=== PATIENT | male | born 1965 | race Caucasian/White ===

== ENCOUNTER 2017-03-29 09:07 | Day surgery (SDC) | payer OTHER ==
[~2017-03-29] VITALS: Ht 180.3 cm; Wt 110.0 kg
[2017-03-29] MEDS ORDERED: NS 1,000 ML IV ONE ×2 (09:30→11:30)
[2017-03-29 09:42] LABS: BASO % 0.2 % (0.0-1.0); EOS # 0.1 K/mm3 (0.0-0.50); EOS % 0.6 % (0.0-3.0); LARGE UNSTAINED CELL # 0.1 K/mm3 (0.0-0.4); LARGE UNSTAINED CELL % 0.7 % (0.0-4.0); LYMPH % 5.6 % (24.0-44.0); MEAN CORPUSCULAR HEMOGLOBIN 29.4 pg (27.0-33.0); MEAN CORPUSCULAR HGB CONC 33.2 g/dl (32.0-36.5); MEAN CORPUSCULAR VOLUME 88.7 fl (80.0-96.0); MONO # 0.8 K/mm3 (0.0-0.8); MONO % 5.1 % (0.0-5.0); NEUTROPHILS # 14.7 K/mm3 (1.8-7.7); NEUTROPHILS % 87.9 % (36.0-66.0); PLATELET COUNT, AUTOMATED 176 k/mm3 (150-450); RED CELL DISTRIBUTION WIDTH 12.6 % (11.5-14.5); WHITE BLOOD COUNT 16.7 K/mm3 (4.0-10.0)
[2017-03-29 09:45] LABS: INR 1.05
[2017-03-29 09:56] LABS: ALBUMIN 3.4 GM/DL (3.2-5.2); ALKALINE PHOSPHATASE 58 U/L (45-117); ALT/SGPT 20 U/L (12-78); AMYLASE 25 U/L (25-115); ANION GAP 6 MEQ/L (8-16); AST/SGOT 7 U/L (15-37); BILIRUBIN,DIRECT 0.1 MG/DL (0.0-0.2); BILIRUBIN,TOTAL 1.2 MG/DL (0.2-1.0); BLOOD UREA NITROGEN 12 MG/DL (7-18); CALCIUM LEVEL 8.4 MG/DL (8.5-10.1); CARBON DIOXIDE LEVEL 28 MEQ/L (21-32); CHLORIDE LEVEL 102 MEQ/L (98-107); CREATININE FOR GFR 1.01 MG/DL (0.70-1.30); GLOMERULAR FILTRATION RATE > 60.0 (>60); GLUCOSE, FASTING 113 MG/DL (70-105); POTASSIUM SERUM 3.9 MEQ/L (3.5-5.1); SODIUM LEVEL 136 MEQ/L (136-145); TOTAL PROTEIN 6.8 GM/DL (6.4-8.2)
[2017-03-29] MEDS ORDERED: ISOVUE-370 76% 100ML VIAL (Q9967) As Ordered ONE (10:30)
--- NOTE | 2017-03-29 10:34 | REP ---
Chest one-view HISTORY: Chest pain Comparison: 08/24/2005 The lungs are clear. The heart is normal in size. The pulmonary vasculature is normal in appearance. Impression: No acute disease. Signed by Thomas Marie MD 03/29/2017 10:26 A
[2017-03-29] MEDS ORDERED: PIPERACILLIN/TAZOBACTAM SOD 3.375 GM in D5W MINI-BAG PLUS 50 ML IV ONE (11:30)
--- NOTE | 2017-03-29 11:30 | REP ---
CT PULMONARY ANGIOGRAM: With IV contrast. HISTORY: Severe back abdominal and chest pain. COMPARISON STUDIES: Today's chest x-ray. Contrast dose: 100 mL of Isovue [address] TECHNIQUE: Helical scanning is acquired and overlapping 1.5 mm and contiguous 3 mm axial images are reformatted. In addition, a 3D work station is deployed to generate thick slab maximum intensity projection images in sagittal and coronal imaging projections. CT PULMONARY ANGIOGRAPHIC FINDINGS: There is good opacification of the pulmonary arterial tree. There is no CT evidence of pulmonary embolism. Maximal intensity projection images show no vessel cutoff or filling defect in the pulmonary arterial tree to suggest a thrombus. The thoracic aorta enhances homogeneously and is normal in caliber and contour. There is no evidence of aneurysm or dissection. No pleural or pericardial effusion is seen. No adrenal lesion is observed. The visualized upper abdominal structures are unremarkable. Lung window settings demonstrate a noncalcified pulmonary nodule in the left lower lobe measuring 3 mm in diameter on image number 59 of 107, series 402 of today's study. There is a second similar 3 mm nodule in the left lower lobe on image number 50 of 107 in this same series. There is yet another 3 mm nodule in the left lung apex on image number 10 of 107. The lung gaona are otherwise clear. IMPRESSION: 1. No CT evidence of pulmonary embolism. 2. There are three noncalcified pulmonary nodules which each measure 3 mm in greatest diameter in the left lung. By Fleischner criteria, if the patient is considered at low risk for pulmonary malignancy, no follow-up is necessary. If considered at high risk, a follow-up chest CT study in 1 year would be indicated. Signed by Niels Spence MD 03/29/2017 01:38 P
--- NOTE | 2017-03-29 11:31 | REP ---
CT study of the abdomen and pelvis with IV but without oral contrast: History: Severe back, abdominal, and chest pain. Comparison abdominal CT study August 04, 2010. CT contrast dose: 100 ml of Isovue [address] findings: Digital commercial ocean clammer radiograph is unremarkable. There is no evidence of ascites. The liver and the spleen are normal in size, homogeneous in texture. There are two tiny accessory splenules again noted. No adrenal lesion is seen. Pancreas and gallbladder are unremarkable. The kidneys enhance symmetrically and are morphologically intact. There is a cyst in the lower pole of the right kidney on today's CT study. This measures 2.2 cm in greatest diameter. It has increased in size from the prior exam in 2009. No hydronephrosis is seen. Normal caliber aorta is noted. Urinary bladder, prostate, and seminal vesicles are unremarkable. No abdominal wall defect is seen. The appendix is abnormal today being diffusely thickened. The periappendiceal fat is inflamed and edematous. There is a small quantity of pericolic gutter fluid but no abscess is seen. The findings are compatible with acute appendicitis. There is no evidence of free air. Impression: CT findings consistent with acute appendicitis with pericolonic inflammation, mural thickening, and some pericolic fluid. No abscess or free air seen. A small cyst is noted in the right kidney. No other significant finding. Signed by Niels Spence MD 03/29/2017 01:38 P
[2017-03-29 15:00] VITALS: BP 130/61
[2017-03-29] MEDS: LR 1,000 ML IV SCH ×2 (15:35→21:55)
--- NOTE | 2017-03-29 16:25 | ED PDOC ---
Post-Departure Follow-Up certified letter sent to pt re formal report of cta. Alverto Ruiz MD Mar 29, 2017 16:24
[2017-03-29] MEDS ORDERED: ONDANSETRON 4MG/2ML VIAL (J2405) IV PRN ×2 (17:30→20:45)
[2017-03-29] MEDS ORDERED: ACETAMINOPHEN TAB 650MG DOSE (2X325MG) PO PRN (17:30)
[2017-03-29] MEDS ORDERED: MORPHINE 2 MG/ML 1ML SYRINGE IV PRN (17:30)
[2017-03-29] MEDS ORDERED: NORCO, ANEXSIA 5/325MG TABLET (HYDROcodone/ACETAMINOPHEN) PO PRN (17:30)
[2017-03-29] MEDS ORDERED: KETOROLAC 30 MG/ML VIAL (J1885) IV PRN ×2 (17:30→20:45)
--- NOTE | 2017-03-29 18:26 | CR ---
DATE OF ADMISSION: 03/29/2017 REASON FOR CONSULTATION: Right quadrant abdominal pain. HISTORY OF PRESENT ILLNESS: The patient is a 51-year-old male who presents with lower back pain that gradually radiated around to his abdomen, up into his epigastric area. This has all gone over the last two days. Early this morning, he went in to Urgent Care because the pain was so severe, he was in tears on his way to Urgent Care. They did a quick cardiac workup, including an EKG, which apparently was abnormal, so they sent him over to emergency room for evaluation. In the emergency room (ER), he had blood work done, as well as a CT scan. There was concern for possible pulmonary embolism (PE), so he had a computed tomography angiography (CTA) completed at first, which was negative for PE, that was then followed up with a CT abdomen and pelvis, which showed findings consistent with acute appendicitis with pericolonic inflammation, mural thickening and some pericolic fluid. No abscess or free air was seen. There is also a small cyst on the right kidney. Therefore, I was called to evaluate. Patient denies any nausea or vomiting. He actually is hungry. No fever sweats or chills. No recent illnesses. No recent trauma to the area. PAST MEDICAL HISTORY: Negative. ALLERGIES: None. HOME MEDICATIONS: None, other than occasional aspirin. SOCIAL HISTORY: Denies drugs, alcohol, or tobacco abuse. PAST HISTORY: Noncontributory. PAST SURGERIES: He has had bilateral knee surgeries. No abdominal surgeries. PHYSICAL EXAMINATION: GENERAL: Alert and oriented (A and O) times three. VITAL SIGNS: Temperature 99, pulse 76, respirations 18, blood pressure 130/61, pulse oximetry 95% room air. HEENT: Pupils equal, round, react to light and accommodation. HEART: S1, S2. Regular rate and rhythm. LUNGS: Clear to auscultation bilaterally. ABDOMEN: Soft. Tender to palpation right lower quadrant. No rebound, guarding or rigidity. EXTREMITIES: No clubbing, cyanosis or edema. LABORATORIES: White count 16.7, hemoglobin 14.8, platelets 176. Potassium 3.9, creatinine 1.01. Troponin 0.02. CK-MB 1. IMAGING STUDIES: As stated already, consistent with acute appendicitis. ASSESSMENT/PLAN: The patient 51-year-old male with signs and symptoms consistent with acute appendicitis. RECOMMENDATIONS: Proceed with laparoscopic, possible open, appendectomy. Risks, benefits and procedure were discussed in detail with the patient. Risks include, but are not limited to, bleeding, infection, hernia formation, damage to surrounding structures, need for further surgery. He understood and signed consent. Postoperatively, due to elevated white count of 16.7, he will be admitted to the hospital and kept overnight for observation, with likely plan of discharge home in the morning.
[2017-03-29] MEDS ORDERED: BUPIVACAINE/EPIN 0.25% 30 ML VIAL As Ordered ONE (18:33)
[2017-03-29] MEDS ORDERED: PROPOFOL 200 MG/20 ML VIAL As Ordered ONE (18:36)
[2017-03-29] MEDS ORDERED: KETOROLAC 60 MG/2 ML VIAL (J1885) As Ordered ONE (18:36)
[2017-03-29] MEDS ORDERED: ONDANSETRON 4MG/2ML VIAL (J2405) As Ordered ONE (18:36)
[2017-03-29] MEDS ORDERED: SUCCINYLCHOLINE 100 MG/5 ML SYRINGE (J0330) As Ordered ONE (18:36)
[2017-03-29] MEDS ORDERED: NEOSTIGMINE 1MG/ML 5 ML SYRINGE (J2710) As Ordered ONE (18:36)
[2017-03-29] MEDS ORDERED: GLYCOPYRROLATE INJ 0.2 MG/ML 2 ML VIAL As Ordered ONE (18:36)
[2017-03-29] MEDS ORDERED: ROCURONIUM BROMIDE 50 MG/5 ML VIAL As Ordered ONE (18:36)
[2017-03-29] MEDS ORDERED: fentaNYL 100 MCG/2 ML INJECTION (J3010) As Ordered ONE ×2 (18:37→19:27)
[2017-03-29] MEDS ORDERED: MIDAZOLAM INJ 2 MG/2 ML VIAL (J2250) As Ordered ONE (18:38)
[2017-03-29] MEDS ORDERED: ZOSYN 3.375 GM VIAL (J2543) As Ordered ONE (18:55)
[2017-03-29] MEDS: PIPERACILLIN/TAZOBACTAM SOD 3.375 GM in D5W MINI-BAG PLUS 50 ML IV SCH (19:22)
[2017-03-29] MEDS ORDERED: dexameTHASONE 4 MG/ML 1ML VIAL (J1100) As Ordered ONE (19:29)
[2017-03-29] MEDS ORDERED: MEPERIDINE INJ 25 MG/ML VIAL (J2175) IV PRN (20:45)
[2017-03-29] MEDS ORDERED: fentaNYL 100 MCG/2 ML INJECTION (J3010) IV PRN (20:45)
[2017-03-29] MEDS ORDERED: PERCOCET 5MG/325MG TAB PO PRN (20:45)
[2017-03-29] MEDS ORDERED: LR 1,000 ML IV SCH (20:45)
[2017-03-29] MEDS ORDERED: METOCLOPRAMIDE INJ 10MG/2ML VIAL (J2765) IV PRN (20:45)
[2017-03-29] MEDS: SENOKOT S TAB PO SCH (21:00)
[2017-03-29 21:08] VITALS: BP 115/54
[2017-03-29 21:38] VITALS: BP 138/63
[2017-03-29 22:38] VITALS: BP 117/59
[2017-03-29 23:38] VITALS: BP 118/56
[2017-03-30 00:38] VITALS: BP 134/52
[2017-03-30] MEDS: PIPERACILLIN/TAZOBACTAM SOD 3.375 GM in D5W MINI-BAG PLUS 50 ML IV SCH ×2 (00:49→06:46)
[2017-03-30 01:38] VITALS: BP 122/55
[2017-03-30 04:00] VITALS: BP 117/56
[2017-03-30] MEDS: LR 1,000 ML IV SCH (04:35)
--- NOTE | 2017-03-30 06:19 | RO ---
DATE OF PROCEDURE: 03/29/2017 PREOPERATIVE DIAGNOSIS: Acute appendicitis. POSTOPERATIVE DIAGNOSIS: Acute appendicitis. PROCEDURE: Laparoscopic appendectomy. SURGEON: Dr. Varinder Soto. WELT SLASHER: None. ANESTHESIA: General. ESTIMATED BLOOD LOSS: 10. COMPLICATIONS: None. INDICATIONS FOR PROCEDURE: The patient is a 51-year-old male who presents with right lower quadrant abdominal pain and found have acute appendicitis. Recommendation to proceed with laparoscopic possible open appendectomy. Risks and benefits of the procedure not limited to but including bleeding, infection, hernia formation, damage to surrounding structures, need for further surgery discussed in detail with the patient. Informed consent was obtained and procedure was planned. PROCEDURE: The was patient brought back to operating room three. After sufficient sedation, the abdomen was sterilely prepped and draped. Next a time-out was done confirm proper patient and proper procedure. Following that, a stab incision was made in the left lower quadrant at Aguila's point. A Veress needle was inserted and the abdomen was insufflated with 15 mmHg. Next 5 mm OptiView port was used at the umbilicus to gain access to the abdomen. Once the abdomen was entered, Veress needle site was examined. There was no signs of injury. Veress needle was then removed. 3 mm port was then placed there. Another 3 mm port was placed in the right lower quadrant. The cecum was encountered with a very large and inflamed appendix. 3 mm instruments were too small to really grab onto it adequately so I had to convert over to the 5 mm instruments and convert two 3 mm port sites back to 5 mm ports. With the larger camera, I had much better visualization. Much larger instruments were able to grab the appendix easier. I was able to elevate it up, dissect through the mesoappendix using Enseal. Once the base of the appendix was reached, it was ligated twice with PDS Endoloops. During the process, the appendix did break into two separate pieces and the third piece was amputated using Enseal after it was ligated with an Endoloop. Once the three pieces were taken off, they were all placed inside of a 5 mm bag and brought out through the umbilical port site. The right lower quadrant was aspirated without any irrigation. There is no signs of any pus or stool leakage. The abdomen was then desufflated. Skin incisions were closed with #4-0 Vicryl subcuticular sutures. The abdomen was cleaned and dried. Steri-Strips, 4x4 and tape were applied thus ending the procedure.
[2017-03-30] MEDS: SENOKOT S TAB PO SCH (07:57)
[2017-03-30 08:00] VITALS: BP 126/56
--- NOTE | 2017-03-30 08:15 | ECGEPIP ---
Stationary ECG Study [facility] - ED Test Date: 2017-03-29 Pat Name: JOSE GUZMÁN Department: Room: [place] [address] Gender: M Yam Curer: LETI : 1965 Requested By: Alverto Beard Order Number: [id number] Reading MD: Sun Stern Measurements Intervals [place] Rate: 76 P: 1 SD: 152 QRS: 38 QRSD: 117 T: 28 QT: 343 QTc: 388 Interpretive Statements SINUS RHYTHM LOW QRS VOLTAGE IN PRECORDIAL LEADS MODERATE INTRAVENTRICULAR CONDUCTION DELAY NO PRIOR FOR COMPARISON Electronically Signed On 03-30-2017 8:15:02 EDT by Sun Stern
[2017-03-30 08:20] LABS: MEAN CORPUSCULAR HEMOGLOBIN 29.8 pg (27.0-33.0); MEAN CORPUSCULAR HGB CONC 33.2 g/dl (32.0-36.5); MEAN CORPUSCULAR VOLUME 89.7 fl (80.0-96.0); RED CELL DISTRIBUTION WIDTH 12.7 % (11.5-14.5); WHITE BLOOD COUNT 12.7 K/mm3 (4.0-10.0)
[2017-03-30 08:36] LABS: ANION GAP 7 MEQ/L (8-16); BLOOD UREA NITROGEN 16 MG/DL (7-18); CALCIUM LEVEL 8.3 MG/DL (8.5-10.1); CARBON DIOXIDE LEVEL 27 MEQ/L (21-32); CHLORIDE LEVEL 105 MEQ/L (98-107); CREATININE FOR GFR 1.25 MG/DL (0.70-1.30); GLOMERULAR FILTRATION RATE > 60.0 (>60); GLUCOSE, FASTING 144 MG/DL (70-105); POTASSIUM SERUM 4.1 MEQ/L (3.5-5.1); SODIUM LEVEL 139 MEQ/L (136-145)
[2017-03-30] MEDS ORDERED: PANTOPRAZOLE 40MG INJ (PROTONIX) (C9113) IV SCH (09:00)
[2017-03-30] MEDS ORDERED: NORCOTAB PO (09:05)
[2017-03-30] MEDS ORDERED: SENN1TAB2 PO (09:05)
[2017-03-30] MEDS ORDERED: AUGM500T34 PO (09:05)
--- NOTE | 2017-03-30 15:53 | DSES ---
DATE OF ADMISSION: 03/29/2017 DATE OF DISCHARGE: 03/30/2017 ADMISSION DIAGNOSIS: Acute appendicitis. DISCHARGE DIAGNOSIS: Acute appendicitis. HOSPITAL COURSE: Patient is a 51-year-old male who presents with right lower quadrant pain, found to have acute appendicitis on CT scan. Recommendation was to proceed with laparoscopic, possible open, appendectomy. He was taken to the operating room for laparoscopic appendectomy yesterday evening. Intraoperatively his appendix was extremely inflamed. It had broken up into three pieces trying to remove it. There were no signs of any purulent drainage or fecal drainage from the appendix when it perforated; however, due to the severe inflammation I kept him overnight for observation. This morning he has zero pain. His incisions were clean, dry, and intact. Abdomen soft, nontender, nondistended. No fevers. Vital signs are all normal. Tolerating a diet, ambulating without any difficulty, and already passing gas. This morning his white count has dropped down from 16.7 to 12. Therefore, he will be discharged home today. PROCEDURES: Laparoscopic appendectomy on 03/29/2017. PLAN: Discharge home today. Followup me in the office in 2 weeks. No lifting, pushing, pulling more 20 pounds. Leave Steri-Strips in place. Okay to shower when he gets home. No hot tubs, baths, or pools for 5 days. His Bonduel, senna, and Augmentin were sent to his pharmacy.
== END 2017-03-30 10:35 | disposition home or self-care (01) ==
LOC: M ED 09:30 → M SDC 13:03 → M PED 14:45 → M SDC 03-30 10:35
PROVIDERS: ATTEND Surgery
DX: K35.80 Unspecified acute appendicitis (principal); R06.09 Other forms of dyspnea; Z72.0 Tobacco use
CPT/HCPCS: 36415; 44970; 71010; 71275; 74177; 80048; 80076; 81001; 82150; 82550; 82553; 83605; 83690; 85025; 85027; 85610; 85730; 86850; 86900; 86901; 87040; 87086; 88304; 93005; 93041; 96374; 96375; 99285; C9113; J0330; J1100; J1885; J2250; J2405; J2543; J2710; J3010; Q9967

== ENCOUNTER → 2017-05-15 | Outpatient (CLI) | payer OTHER ==
[~2017-05-15] MED LIST: AUGM500T34 PO; NORCOTAB PO; SENN1TAB2 PO
[2017-05-15 10:40] LABS: BASO % 0.3 % (0.0-1.0); EOS # 0.3 K/mm3 (0.0-0.50); EOS % 5.1 % (0.0-3.0); LARGE UNSTAINED CELL # 0.1 K/mm3 (0.0-0.4); LARGE UNSTAINED CELL % 1.9 % (0.0-4.0); LYMPH # 1.4 K/mm3 (1.5-4.5); LYMPH % 20.2 % (24.0-44.0); MEAN CORPUSCULAR HEMOGLOBIN 29.9 pg (27.0-33.0); MEAN CORPUSCULAR HGB CONC 33.3 g/dl (32.0-36.5); MEAN CORPUSCULAR VOLUME 89.7 fl (80.0-96.0); MONO # 0.4 K/mm3 (0.0-0.8); MONO % 5.6 % (0.0-5.0); NEUTROPHILS # 4.2 K/mm3 (1.8-7.7); NEUTROPHILS % 66.9 % (36.0-66.0); PLATELET COUNT, AUTOMATED 174 k/mm3 (150-450); RED CELL DISTRIBUTION WIDTH 12.9 % (11.5-14.5); WHITE BLOOD COUNT 6.3 K/mm3 (4.0-10.0)
[2017-05-15 11:14] LABS: ALBUMIN 3.9 GM/DL (3.2-5.2); ALKALINE PHOSPHATASE 58 U/L (45-117); ALT/SGPT 26 U/L (12-78); ANION GAP 5 MEQ/L (8-16); AST/SGOT 13 U/L (15-37); BILIRUBIN,TOTAL 1.1 MG/DL (0.2-1.0); BLOOD UREA NITROGEN 15 MG/DL (7-18); CALCIUM LEVEL 8.8 MG/DL (8.5-10.1); CARBON DIOXIDE LEVEL 30 MEQ/L (21-32); CHLORIDE LEVEL 101 MEQ/L (98-107); CHOLESTEROL LEVEL 214 MG/DL (<200); CREATININE FOR GFR 1.09 MG/DL (0.70-1.30); GLOMERULAR FILTRATION RATE > 60.0 (>60); GLUCOSE, FASTING 98 MG/DL (70-105); POTASSIUM SERUM 4.3 MEQ/L (3.5-5.1); SODIUM LEVEL 136 MEQ/L (136-145); TOTAL PROTEIN 6.9 GM/DL (6.4-8.2); TRIGLYCERIDES LEVEL 159 MG/DL (<150)
== END ==
LOC: M LAB 10:06
PROVIDERS: ATTEND Family Medicine
DX: Z12.5 Encounter for screening for malignant neoplasm of prostate (principal); Z13.220 Encounter for screening for lipoid disorders; Z13.0 Encounter for screening for diseases of the blood and blood-forming organs and certain disorders involving the immune mechanism; Z13.29 Encounter for screening for other suspected endocrine disorder
CPT/HCPCS: 36415; 80053; 80061; 84443; 85025; G0103

== ENCOUNTER 2018-12-24 17:57 | Emergency (ER) | payer OTHER ==
[~2018-12-24] VITALS: Ht 180.3 cm; Wt 127.8 kg
[2018-12-24 18:36] LABS: BASO % 0.2 % (0.0-1.0); EOS # 0.4 10^3/uL (0.0-0.50); EOS % 4.5 % (0.0-3.0); HEMATOCRIT 45.5 % (42.0-52.0); LYMPH # 1.9 10^3/uL (1.5-4.5); LYMPH % 23.6 % (24.0-44.0); MEAN CORPUSCULAR HEMOGLOBIN 29.5 pg (27.0-33.0); MEAN CORPUSCULAR VOLUME 89.6 fl (80.0-96.0); MONO # 0.5 10^3/uL (0.0-0.8); NEUTROPHILS # 5.2 10^3/uL (1.8-7.7); NEUTROPHILS % 65.3 % (36.0-66.0); PLATELET COUNT, AUTOMATED 191 10^3/uL (150-450); RED BLOOD COUNT 5.08 10^6/uL (4.30-6.10)
--- NOTE | 2018-12-24 18:50 | REP ---
Portable chest x-ray: Single view: History: Chest pain. Comparison study: March 29, 2017. Findings: EKG monitoring electrodes overlie the chest. Lungs are well inflated and clear. Pleural angles are sharp. Heart size is normal. There is an old healed fracture of the left second rib unchanged. Surgical sutures are noted incidentally in the mandibular ramus on the right. Impression: No active cardiopulmonary disease. Electronically Signed by Niels Spence MD 12/24/2018 07:13 P
[2018-12-24 19:28] LABS: ALBUMIN 3.6 GM/DL (3.2-5.2); ALT/SGPT 29 U/L (12-78); BILIRUBIN,DIRECT < 0.1 MG/DL (0.0-0.2); BILIRUBIN,TOTAL 0.3 MG/DL (0.2-1.0); BLOOD UREA NITROGEN 17 MG/DL (7-18); CALCIUM LEVEL 8.1 MG/DL (8.5-10.1); CARBON DIOXIDE LEVEL 30 MEQ/L (21-32); CHLORIDE LEVEL 104 MEQ/L (98-107); CPK CREATINE PHOSPHOKINASE 153 U/L (39-308); CREATININE FOR GFR 1.18 MG/DL (0.70-1.30); GLOMERULAR FILTRATION RATE > 60.0 (>56); GLUCOSE, FASTING 110 MG/DL (70-100); LIPASE 198 U/L (73-393); MB/CK RELATIVE INDEX 0.78 (< OR =4); POTASSIUM SERUM 3.6 MEQ/L (3.5-5.1); SODIUM LEVEL 142 MEQ/L (136-145); TROPONIN I < 0.02 NG/ML (< 0.10)
[2018-12-24 19:45] VITALS: BP 139/63
--- NOTE | 2018-12-24 20:04 | ECGEPIP ---
Stationary ECG Study [facility] - ED Test Date: 2018-12-24 Pat Name: JOSE GUZMÁN Department: Room: - Gender: M Director Of Fundraising: : 1965 Requested By: Alverto Beard Order Number: [id number] Reading MD: Alverto Beard Measurements Intervals [place] Rate: 77 P: 12 AR: 160 QRS: 43 QRSD: 114 T: 40 QT: 347 QTc: 394 Interpretive Statements SINUS RHYTHM INCOMPLETE RIGHT BUNDLE BRANCH BLOCK NONSPECIFIC ST T WAVE CHANGES 03/29/[address] T WAVE CHANGES Electronically Signed On 12-24-2018 20:03:36 EST by Alverto Beard
== END 2018-12-24 20:13 | disposition home or self-care (01) ==
LOC: M ED 17:57
DX: R07.89 Other chest pain (principal); I45.10 Unspecified right bundle-branch block; R06.02 Shortness of breath; Z87.891 Personal history of nicotine dependence; Z82.49 Family history of ischemic heart disease and other diseases of the circulatory system; Z86.79 Personal history of other diseases of the circulatory system

== ENCOUNTER → 2019-03-05 | Outpatient (CLI) | payer OTHER ==
[~2019-03-05] MED LIST changes: +HYDR-3715 PO; -NORCOTAB PO; -SENN1TAB2 PO; +SENN1TAB40 PO
[2019-03-05 12:03] LABS: BASO % 0.5 % (0.0-1.0); EOS # 0.4 10^3/uL (0.0-0.50); EOS % 6.9 % (0.0-3.0); HEMATOCRIT 46.7 % (42.0-52.0); HEMOGLOBIN 15.4 g/dl (13.5-17.5); LYMPH # 1.5 10^3/uL (1.5-4.5); LYMPH % 22.8 % (24.0-44.0); MEAN CORPUSCULAR HEMOGLOBIN 29.4 pg (27.0-33.0); MEAN CORPUSCULAR VOLUME 89.3 fl (80.0-96.0); MONO # 0.5 10^3/uL (0.0-0.8); MONO % 8.2 % (0.0-5.0); NEUTROPHILS # 3.9 10^3/uL (1.8-7.7); NEUTROPHILS % 61.1 % (36.0-66.0); PLATELET COUNT, AUTOMATED 198 10^3/uL (150-450); RED BLOOD COUNT 5.23 10^6/uL (4.30-6.10); WHITE BLOOD COUNT 6.4 10^3/uL (4.0-10.0)
[2019-03-05 13:00] LABS: ALBUMIN 3.8 GM/DL (3.2-5.2); ALT/SGPT 29 U/L (12-78); BILIRUBIN,TOTAL 0.8 MG/DL (0.2-1.0); BLOOD UREA NITROGEN 17 MG/DL (7-18); CALCIUM LEVEL 8.7 MG/DL (8.5-10.1); CARBON DIOXIDE LEVEL 29 MEQ/L (21-32); CHLORIDE LEVEL 106 MEQ/L (98-107); CHOLESTEROL LEVEL 202 MG/DL (<200); CHOLESTEROL RISK RATIO 5.315 (<5); CREATININE FOR GFR 0.99 MG/DL (0.70-1.30); GLOMERULAR FILTRATION RATE > 60.0 (>56); GLUCOSE, FASTING 97 MG/DL (70-100); HDL CHOLESTEROL 38 MG/DL (>40); LDL CHOLESTEROL 140 MG/DL (<100); NON-HDL-C 164 MG/DL; NT-PRO BNP 29 PG/ML (<125); POTASSIUM SERUM 4.7 MEQ/L (3.5-5.1); SODIUM LEVEL 140 MEQ/L (136-145); TOTAL PROTEIN 7.1 GM/DL (6.4-8.2); TRIGLYCERIDES LEVEL 120 MG/DL (<150); TROPONIN I < 0.02 NG/ML (< 0.10)
[2019-03-05 13:42] LABS: HEMOGLOBIN A1c 5.5 %
== END ==
LOC: M LAB 11:08
PROVIDERS: ATTEND Physician Assistant
DX: R07.9 Chest pain, unspecified (principal)

== ENCOUNTER → 2019-04-04 | Outpatient (CLI) | payer OTHER ==
[2019-04-04 13:32] LABS: ALBUMIN 3.7 GM/DL (3.2-5.2); ALT/SGPT 28 U/L (12-78); BLOOD UREA NITROGEN 15 MG/DL (7-18); CALCIUM LEVEL 8.6 MG/DL (8.5-10.1); CARBON DIOXIDE LEVEL 29 MEQ/L (21-32); CHLORIDE LEVEL 106 MEQ/L (98-107); CHOLESTEROL LEVEL 198 MG/DL (<200); CHOLESTEROL RISK RATIO 4.714 (<5); CREATININE FOR GFR 1.11 MG/DL (0.70-1.30); GLOMERULAR FILTRATION RATE > 60.0 (>56); GLUCOSE, FASTING 88 MG/DL (70-100); HDL CHOLESTEROL 42 MG/DL (>40); LDL CHOLESTEROL 134 MG/DL (<100); NON-HDL-C 156 MG/DL; POTASSIUM SERUM 4.2 MEQ/L (3.5-5.1); SODIUM LEVEL 141 MEQ/L (136-145); TOTAL PROTEIN 6.9 GM/DL (6.4-8.2); TRIGLYCERIDES LEVEL 108 MG/DL (<150)
== END ==
LOC: M LAB 12:25
PROVIDERS: ATTEND Physician Assistant
DX: E78.2 Mixed hyperlipidemia (principal)

== ENCOUNTER → 2019-10-15 | Outpatient (CLI) | payer OTHER ==
[~2019-10-15] MED LIST changes: +SENN-53 PO; -SENN1TAB40 PO
[2019-10-15 13:44] LABS: ALBUMIN 3.8 GM/DL (3.2-5.2); ALT/SGPT 25 U/L (12-78); BILIRUBIN,TOTAL 0.8 MG/DL (0.2-1.0); BLOOD UREA NITROGEN 13 MG/DL (7-18); CALCIUM LEVEL 8.6 MG/DL (8.5-10.1); CARBON DIOXIDE LEVEL 29 MEQ/L (21-32); CHLORIDE LEVEL 107 MEQ/L (98-107); CHOLESTEROL LEVEL 228 MG/DL (<200); CREATININE FOR GFR 1.04 MG/DL (0.70-1.30); GLOMERULAR FILTRATION RATE > 60.0 (>56); GLUCOSE, FASTING 88 MG/DL (70-100); HDL CHOLESTEROL 38 MG/DL (>40); LDL CHOLESTEROL 158 MG/DL (<100); NON-HDL-C 190 MG/DL; POTASSIUM SERUM 4.4 MEQ/L (3.5-5.1); SODIUM LEVEL 141 MEQ/L (136-145); TOTAL PROTEIN 7.1 GM/DL (6.4-8.2); TRIGLYCERIDES LEVEL 159 MG/DL (<150)
[2019-10-15 13:53] LABS: TOTAL 25(OH) VITAMIN D 23.3 NG/ML (30.0-100.0)
== END ==
LOC: M LAB 11:32
PROVIDERS: ATTEND Physician Assistant
DX: E78.00 Pure hypercholesterolemia, unspecified (principal)

== ENCOUNTER → 2020-01-08 | Outpatient (CLI) | payer OTHER ==
--- NOTE | 2020-01-08 16:16 | REP ---
Chest x-ray: Two views. History: Dyspnea . Comparison study: December 24, 2018 . Findings: The lungs are well inflated and free of infiltrate. The pleural angles are sharp. The heart size is normal. Pulmonary vasculature is not increased. No significant bony abnormality is seen. Impression: Negative chest x-ray. Electronically Signed by Niels Spence MD 01/08/2020 04:08 P
== END ==
LOC: M RAD 11:08
PROVIDERS: ATTEND Nurse Practitioner Family
DX: R06.09 Other forms of dyspnea (principal)

== ENCOUNTER 2020-03-06 11:27 | Emergency (ER) | payer OTHER ==
[~2020-03-06] VITALS: Ht 180.3 cm; Wt 120.0 kg
[2020-03-06] MEDS ORDERED: NS 1,000 ML IV ONE (12:00)
[2020-03-06 12:20] LABS: BASO % 0.3 % (0.0-1.0); EOS # 0.3 10^3/uL (0.0-0.5); EOS % 3.6 % (0.0-3.0); HEMATOCRIT 49.5 % (42.0-52.0); HEMOGLOBIN 16.2 g/dl (13.5-17.5); LYMPH # 1.7 10^3/uL (1.5-5.0); MEAN CORPUSCULAR HEMOGLOBIN 28.8 pg (27.0-33.0); MEAN CORPUSCULAR HGB CONC 32.7 g/dl (32.0-36.5); MEAN CORPUSCULAR VOLUME 88.1 fl (80.0-96.0); MONO # 0.6 10^3/uL (0.0-0.8); MONO % 7.9 % (0.0-5.0); NEUTROPHILS % 66.1 % (36.0-66.0); PLATELET COUNT, AUTOMATED 216 10^3/uL (150-450); RED BLOOD COUNT 5.62 10^6/uL (4.30-6.10); WHITE BLOOD COUNT 7.6 10^3/uL (4.0-10.0)
[2020-03-06 12:42] LABS: ERYTHROCYTE SEDIMENTATION RATE 6 mm/hr (0-20)
[2020-03-06 12:53] LABS: ALBUMIN 3.6 GM/DL (3.2-5.2); ALT/SGPT 18 U/L (12-78); BILIRUBIN,DIRECT 0.2 MG/DL (0.0-0.2); BILIRUBIN,TOTAL 0.9 MG/DL (0.2-1.0); BLOOD UREA NITROGEN 16 MG/DL (7-18); CALCIUM LEVEL 8.9 MG/DL (8.5-10.1); CARBON DIOXIDE LEVEL 27 MEQ/L (21-32); CHLORIDE LEVEL 107 MEQ/L (98-107); CREATININE FOR GFR 1.09 MG/DL (0.70-1.30); GLOMERULAR FILTRATION RATE > 60.0 (>56); GLUCOSE, FASTING 92 MG/DL (70-100); LIPASE 98 U/L (73-393); SODIUM LEVEL 140 MEQ/L (136-145); TOTAL PROTEIN 7.2 GM/DL (6.4-8.2)
[2020-03-06] MEDS ORDERED: methylPREDNISolone INJ 125 MG/2 ML VIAL (J2930) IV ONE (14:00)
--- NOTE | 2020-03-06 14:44 | REP ---
CT ABDOMEN/PELVIS WITHOUT CONTRAST: CT abdomen and pelvis is performed without oral or IV contrast. Sagittal and coronal reconstruction images are performed. The visualized lung bases demonstrate no infiltrate. The liver, spleen, adrenals, and pancreas are grossly unremarkable. No renal or ureteral calculus is seen, and there is no hydroureteronephrosis. There is a cyst of the posterior mid right kidney measuring 2.2 cm in diameter. There is no abdominal aortic aneurysm. There is no adenopathy. There is no free air. There is diffuse thickening of the right colon as well as the distal ilium, consistent with inflammatory bowel disease. There are several scattered diverticula of the sigmoid colon without acute diverticulitis. There is a very small amount of free fluid in the pelvis. Urinary bladder is not well distended and not well evaluated. IMPRESSION: Diffuse thickening of the right colon and distal ileum consistent with inflammatory bowel disease. Very small amount of free fluid in the pelvis. No other acute finding. Electronically Signed by Varinder Conway MD 03/06/2020 02:47 P
[2020-03-06] MEDS ORDERED: ONDA4TAB6 PO (14:55)
[2020-03-06 15:06] VITALS: BP 141/86
--- NOTE | 2020-03-08 07:18 | ED PDOC ---
Post-Departure Follow-Up dr barragan faxed formal report of ct abd/p for fu Alverto Ruiz MD March 08, 2020 07:18
== END 2020-03-06 15:07 | disposition home or self-care (01) ==
LOC: M ED 11:27
DX: K52.9 Noninfective gastroenteritis and colitis, unspecified (principal); Z79.899 Other long term (current) drug therapy
CPT/HCPCS: 74176; 80048; 80076; 83690; 85025; 85652; 86140; 87507; 96361; 96374; 99284; J2930

== ENCOUNTER 2020-03-18 04:38 | Inpatient (IN) | payer OTHER ==
[~2020-03-18] VITALS: Ht 180.3 cm; Wt 116.3 kg
[~2020-03-18 04:38] MED LIST changes: +ONDA4TAB6 PO
[2020-03-18] MEDS ORDERED: NS 1,000 ML IV SCH (05:24)
[2020-03-18] MEDS ORDERED: ONDANSETRON 4MG/2ML VIAL IV ONE (05:30)
[2020-03-18 05:34] LABS: BASO % 0.2 % (0.0-1.0); EOS % 0.1 % (0.0-3.0); HEMOGLOBIN 17.6 g/dl (13.5-17.5); LYMPH # 0.8 10^3/uL (1.5-5.0); LYMPH % 4.1 % (24.0-44.0); MEAN CORPUSCULAR HEMOGLOBIN 29.4 pg (27.0-33.0); MEAN CORPUSCULAR HGB CONC 33.2 g/dl (32.0-36.5); MEAN CORPUSCULAR VOLUME 88.5 fl (80.0-96.0); MONO % 5.2 % (0.0-5.0); NEUTROPHILS # 17.4 10^3/uL (1.5-8.5); PLATELET COUNT, AUTOMATED 275 10^3/uL (150-450); RED BLOOD COUNT 5.99 10^6/uL (4.30-6.10); WHITE BLOOD COUNT 19.3 10^3/uL (4.0-10.0)
[2020-03-18 06:03] LABS: ALT/SGPT 55 U/L (12-78); BILIRUBIN,DIRECT 0.4 MG/DL (0.0-0.2); BILIRUBIN,TOTAL 1.3 MG/DL (0.2-1.0); BLOOD UREA NITROGEN 25 MG/DL (7-18); CALCIUM LEVEL 9.3 MG/DL (8.5-10.1); CARBON DIOXIDE LEVEL 30 MEQ/L (21-32); CHLORIDE LEVEL 101 MEQ/L (98-107); CREATININE FOR GFR 1.26 MG/DL (0.70-1.30); GLOMERULAR FILTRATION RATE > 60.0 (>56); GLUCOSE, FASTING 167 MG/DL (70-100); LIPASE 82 U/L (73-393); POTASSIUM SERUM 4.2 MEQ/L (3.5-5.1); SODIUM LEVEL 139 MEQ/L (136-145); TOTAL PROTEIN 7.4 GM/DL (6.4-8.2)
[2020-03-18] MEDS: GASTROGRAFIN SOLUTION 30ML PO SCH ×2 (06:13→06:41)
[2020-03-18] MEDS ORDERED: ISOVUE-370 76% 100ML VIAL As Ordered ONE (07:34)
--- NOTE | 2020-03-18 08:29 | REPVR ---
PROCEDURE INFORMATION: Exam: CT Abdomen And Pelvis With Contrast Exam date and time: 03/18/2020 5:39 AM Age: 54 years old Clinical indication: Abdominal pain; Generalized; Additional info: Gen abd pain, vomiting TECHNIQUE: Imaging protocol: Computed tomography of the abdomen and pelvis with intravenous contrast. Radiation optimization: All CT scans at this facility use at least one of these dose optimization techniques: automated exposure control; mA and/or kV adjustment per patient size (includes targeted exams where dose is matched to clinical indication); or iterative reconstruction. Contrast material: ISOVUE 370; Contrast volume: 100 ml; Contrast route: IV; Other contrast: Oral, Gastrographin, 10ml gastro to 290 water x2; COMPARISON: CT ABD PELVIS W/O CONTRAST 03/06/2020 1:19 PM FINDINGS: Lungs: The lung bases demonstrate minor atelectasis/scarring. Liver: Normal. No mass. Gallbladder and bile ducts: No gallstones are evident, but ultrasound would be more sensitive. No gross biliary ductal dilatation. Pancreas: Normal. No ductal dilation. Spleen: Normal. No splenomegaly. Adrenals: Normal. No mass. Kidneys and ureters: The left kidney appears unremarkable. The right kidney contains a 2.6 cm cyst, not requiring follow-up. It appears otherwise unremarkable. Stomach and bowel: There is mild to moderate dilatation of the proximal to mid small bowel. The cecum and ascending colon is also dilated, to the level of an apparent area of narrowing along the proximal transverse colon (image 201:[id number]). There is wall thickening of the colon at the level of narrowing, which was also present on the prior exam, and could represent a stricture in the setting of previously suggested inflammatory bowel disease, though neoplasm is not excluded. There is again minor sigmoid colonic diverticulosis without evidence for diverticulitis. Appendix: It again appears that the appendix is absent. Intraperitoneal space: There is no free air. Small free fluid is present in the pelvis and along the right paracolic gutter. There is also small fluid involving the mesentery of some of the distended loops of small bowel, which could be reactive. Vasculature: Unremarkable. No abdominal aortic aneurysm. Lymph nodes: Unremarkable. No enlarged lymph nodes. Bladder: Grossly unremarkable. Reproductive: Unremarkable as visualized. Bones/joints: Degenerative changes again involve the spine and hips. Soft tissues: Small fat containing bilateral inguinal hernias are again present. IMPRESSION: 1. Bowel obstruction to the level of an area of narrowing along the proximal transverse colon, with dilatation of the small and large bowel proximal to this. Wall thickening at the level of narrowing, also present on 03/06/20, could represent stricture in the setting of previously suggested inflammatory bowel disease, though neoplasm is also not excluded. Recommend further GI evaluation. 2. Small free fluid, along with small fluid involving the mesentery of some of the distended small bowel loops, could be reactive. 3. Persistent minor sigmoid colonic diverticulosis without evidence for diverticulitis. 4. Similar small fat containing bilateral inguinal hernias. Electronically signed by: Jignesh Frederick On 03/18/2020 08:29:42 AM
[2020-03-18] MEDS ORDERED: PRED10TA2 PO (08:59)
[2020-03-18] MEDS ORDERED: MORPHINE 2 MG/ML 1ML VIAL (J2270) IV PRN ×2 (09:00→21:30)
[2020-03-18] MEDS ORDERED: PIPERACILLIN/TAZOBACTAM SOD 3.375 GM in D5W MINI-BAG PLUS 50 ML IV ONE (09:00)
[2020-03-18] MEDS ORDERED: NS 500 ML IV ONE (09:00)
[2020-03-18] MEDS ORDERED: ONDA4TAB6 PO (09:01)
[2020-03-18] MEDS ORDERED: ONDANSETRON 4MG/2ML VIAL IV PRN (12:00)
[2020-03-18] MEDS ORDERED: ENOXAPARIN 40MG/0.4ML SYRINGE (J1650 PER 10MG) SC ONE (12:00)
[2020-03-18] MEDS: NS 1,000 ML IV SCH ×2 (12:47→18:38)
[2020-03-18 13:51] VITALS: BP 146/91
[2020-03-18 14:00] VITALS: BP 146/91
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
[2020-03-18] MEDS: PANTOPRAZOLE 40MG VIAL (C9113 PER 1) IV SCH (21:42)
[2020-03-18] MEDS: ONDANSETRON 4MG/2ML VIAL IV PRN (21:42)
[2020-03-18] MEDS: MORPHINE 2 MG/ML 1ML VIAL (J2270) IV PRN (21:44)
[2020-03-18 22:00] VITALS: BP 145/88
--- NOTE | 2020-03-18 22:01 | ECGEPIP ---
[facility] Test Date: 2020-03-18 Pat Name: JOSE GUZMÁN Department: Room: [place] [address] Gender: Male Field Service Representative: CANDELARIO : 1965 Requested By: MARGIE NELSON D.O. Order Number: [id number] Reading MD: Jaquan Smith Measurements Intervals [place] Rate: 85 P: 33 ME: 160 QRS: 26 QRSD: 105 T: 28 QT: 323 QTc: 385 Interpretive Statements SINUS RHYTHM Poor R-wave progression Electronically Signed on 03-18-2020 22:00:46 EDT by Jaquan Smith
[2020-03-19] MEDS: NS 1,000 ML IV SCH (01:21)
[2020-03-19 06:00] VITALS: BP 139/73
[2020-03-19 08:08] LABS: MEAN CORPUSCULAR HEMOGLOBIN 29.5 pg (27.0-33.0); MEAN CORPUSCULAR HGB CONC 32.8 g/dl (32.0-36.5); MEAN CORPUSCULAR VOLUME 89.8 fl (80.0-96.0); PLATELET COUNT, AUTOMATED 227 10^3/uL (150-450); RED BLOOD COUNT 5.12 10^6/uL (4.30-6.10); WHITE BLOOD COUNT 8.1 10^3/uL (4.0-10.0)
[2020-03-19 08:22] LABS: HEMOGLOBIN 15.1 g/dl (13.5-17.5)
--- NOTE | 2020-03-19 08:47 | IPNPDOC ---
Text Note Date of Service The patient was seen on 03/19/20. NOTE No acute events overnight. He still feels about the same, but he did have a c ouple small BMs. Minimal output from the NG. VSSAF NAD abd - soft, slight tenderness on the right side only, mild distention, no rebound or guarding labs - below A) 54y/o male with transverse colon inflammation and partial vs. complete obstruction. P) npo attempt bowel prep today for a colonoscopy tomorrow. If scope shows mass or stricture, then I will plan for surgical resection on Monday. If it shows inflammation, then I will biopsy and plan for a trial of steroids. Anurag Soto DO VS,Fishbone, I+O VS, Fishpapitoe, I+O Laboratory Tests 03/19/20 07:49 Vital Signs Date Time Temp Pulse Resp B/P (MAP) Pulse Ox O2 Delivery O2 Flow Rate FiO2 03/19/20 06:00 98.2 79 18 139/73 (95) 94 Room Air I&O- Last 24 Hours up to 6 AM 03/19/20 06:00 Intake Total 4550 ml Output Total 1725 ml Balance 2825 ml CONCETTA SOTO DO March 19, 2020 08:47
[2020-03-19 08:55] LABS: ALBUMIN 2.9 GM/DL (3.2-5.2); ALT/SGPT 71 U/L (12-78); BILIRUBIN,TOTAL 1.4 MG/DL (0.2-1.0); BLOOD UREA NITROGEN 18 MG/DL (7-18); CALCIUM LEVEL 8.3 MG/DL (8.5-10.1); CARBON DIOXIDE LEVEL 31 MEQ/L (21-32); CHLORIDE LEVEL 106 MEQ/L (98-107); CREATININE FOR GFR 0.95 MG/DL (0.70-1.30); GLOMERULAR FILTRATION RATE > 60.0 (>56); GLUCOSE, FASTING 102 MG/DL (70-100); POTASSIUM SERUM 4.5 MEQ/L (3.5-5.1); SODIUM LEVEL 143 MEQ/L (136-145); TOTAL PROTEIN 5.5 GM/DL (6.4-8.2)
[2020-03-19] MEDS: PANTOPRAZOLE 40MG VIAL (C9113 PER 1) IV SCH (08:58)
[2020-03-19] MEDS: MORPHINE 2 MG/ML 1ML VIAL (J2270) IV PRN ×2 (08:58→13:02)
[2020-03-19] MEDS: ONDANSETRON 4MG/2ML VIAL IV PRN ×4 (08:59→22:51)
[2020-03-19] MEDS ORDERED: MAGNESIUM CITRATE 300 ML BTL PO ONE (09:00)
[2020-03-19] MEDS ORDERED: FLEET ENEMA PR ONE (13:00)
[2020-03-19 14:00] VITALS: BP 146/87
[2020-03-19] MEDS: D5W/0.9% SODIUM CHLORIDE 1,000 ML IV SCH (16:41)
[2020-03-19] MEDS: DICYCLOMINE 10 MG CAP PO SCH ×2 (16:41→22:51)
[2020-03-19] MEDS ORDERED: MORPHINE 2 MG/ML 1ML VIAL (J2270) IV PRN ×2 (17:30)
--- NOTE | 2020-03-19 17:36 | REP ---
ABDOMINAL SERIES: Supine and erect views of the abdomen are performed. No free air is seen. Moderately dilated small bowel loops are seen with air-fluid levels on the upright view consistent with bowel obstruction, as seen on the CT of 03/18/2020. There is a nasogastric tube with sideport in the stomach. An accompanying view of the chest demonstrates mildly prominent cardiac silhouette. There are mild bibasilar fibroatelectatic changes. Electronically Signed by Varinder Conway MD 03/20/2020 10:10 A
[2020-03-19 20:00] VITALS: BP 132/75
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
--- NOTE | 2020-03-19 21:58 | IPNPDOC ---
Date Seen The patient was seen on 03/19/20. Progress Note SUBJECTIVE: Benjamin was seen and examined this morning while lying on his right side in bed. He appears to be in a moderate amount of discomfort. His NG tube, which had been clamped only an hour earlier, has been unclamped as he began experiencing more profound abdominal distention. He reports 2 small bowel movements overnight and has been belching. He did experience some nausea overnight and the night hospitalist team switched his prn ondansetron to q4h dosing from q8h. Prn morphine was also added by night service. He denies any fever, chills, night sweats, chest pain, palpitations, or dung rtness of breath either overnight or currently. OBJECTIVE PHYSICAL EXAMINATION: VITAL SIGNS: Please see below. GENERAL APPEARANCE: Laying on his right side in bed. Appears to be in moderate discomfort. NGT in place and unclamped. Alert and oriented 3 HEENT: NGT present through right nare. PERRLA. Noninjected, anicteric sclera. RESPIRATORY: Lungs are clear to auscultation bilaterally with no adventitious breath sounds appreciated CARDIOVASCULAR: Regular rate, regular rhythm. +S1, S2 with no mu rmurs/rubs/gallops appreciated. ABDOMEN: Soft, moderate distention with tenderness periumbilically. Tinkling bowel sounds throughout with tympany to percussion in LUQ and LLQ. No guarding or rigidity. EXTREMITIES: Trace pitting edema b/l LE. 2+ radial and posterior tibial pulses bilaterally. NEUROLOGICAL: Awake, alert and oriented 3. No focal neurologic deficits appreciated. Non-dysarthric speech. PSYCHIATRIC: Mood and affect appear appropriate LN: No significant cervical or inguinal lymphadenopathy LABORATORY DATA, IMAGING STUDIES, MICROBIOLOGY: Please see below. ASSESSMENT AND PLAN: This is a 54yo male w/o no significant pmhx who presented on 03/18 to ED with 10/10 diffuse, sharp abdominal pain with associated emesis; found to have obstruction of prox transverse colon w/ small bowel and large bowel dilation proximally and potential stricture on imaging. Admitted for bowel obstruction with NGT placement and bowel rest/npo. #Proximal transverse colon bowel obstruction with dilation of small and large bowel proximally -CT abd/pel with contrast today: "Bowel obstruction to the level of an area of narrowing along the proximal transverse colon, with dilatation of the small and large bowel proximal to this. Wall thickening at the level of narrowing, also present on 03/06/20, could represent stricture in the setting of previously suggested inflammatory bowel disease, though neoplasm is also not excluded. Recommend further GI evaluation. Small free fluid, along with small fluid involving the mesentery of some of the distended small bowel loops, could be reactive." -Spoke to the attending general surgeon this morning who is also following with patient. Etiology of patient's bowel obstruction is unknown at this time, with leading possibilities being an inflammatory versus malignant process. Current plan is to clamp the NG tube and give magnesium citrate to move bowels. Should he have good response with the initial mag citrate dosing, a second one will be given. Should the mag citrate proved to be ineffective, enemas will be administered with plan for colonoscopy tomorrow. Should colonoscopy reveal a mass, it will be biopsied and patient will likely have a surgical resection next Monday (03/23).should the scope reveal a stricture, it will be also biopsied and steroids will be given attempt obstruction resolution. Patient will also be encouraged to ambulate while NG tube is clamped. Should patient experience worsening abdominal pain and/or abdominal distention and/or nausea/vomiting, we will unclamped the NG tube and return to low intermittent suction. -With planned colonoscopy tomorrow, patient was preemptively ordered a COVID-19 test this morning. -bowel rest with NPO orders -Continue with NGT set to low intermediate suction -c/w prn zofran (switched by night hospitalist to q4h from q8h due to nausea) ordered; EKG ordered to assess for patient's QTc as lengthening is potential side effect of Zofran -scheduled D5w/NS IVF continued today -Empiric antibiotics deferred by primary team as patient does not have imaging signs of perforation or extensive inflammation, has unremarkable lactic acid, and is afebrile; WBC 19.3, could potentially be secondary to inflammation and recent emesis/GI upset and not infectious -General surgery (Dr. Soto) has been consulted. Hospitalist service appreciates surgery's insights and recommendations. Disposition: Pending results of colonoscopy tomorrow Attending attestation: I evaluated and examined the patient in person; I discussed the care with Resident in detail and agree with the plan above. VS, I&O, 24H, Fishbone Vital Signs/I&O Vital Signs Date Time Temp Pulse Resp B/P (MAP) Pulse Ox O2 Delivery O2 Flow Rate FiO2 03/19/20 17:15 19 03/19/20 14:00 98.8 92 146/87 (106) 92 Room Air I&O- Last 24 Hours up to 6 AM 03/19/20 06:00 Intake Total 4550 ml Output Total 1725 ml Balance 2825 ml Laboratory Data 24H LABS Laboratory Tests 2 03/19/20 07:49: Nucleated Red Blood Cells % (auto) 0.0, Anion Gap 6L, Glomerular Filtration Rate > 60.0, Calcium Level 8.3L, Total Bilirubin 1.4H, Aspartate Amino Transf (AST/SGOT) 24, Alanine Aminotransferase (ALT/SGPT) 71, Alkaline Phosphatase 56, Total Protein 5.5#L, Albumin 2.9#L, Albumin/Globulin Ratio 1.1 CBC/BMP Laboratory Tests 03/19/20 07:49 Microbiology Microbiology 03/19/20 Coronavirus COVID-19 PCR ([facility]AL[facility]IT), Received Pending MARGIE NELSON D.O. March 19, 2020 21:58 CHINTAN GIBSON MD Mar 25, 2020 21:16
[2020-03-20] VITALS (7 sets, daily range): BP systolic 116–142; BP diastolic 53–90
[2020-03-20] MEDS: D5W/0.9% SODIUM CHLORIDE 1,000 ML IV SCH ×2 (04:51→17:14)
[2020-03-20] MEDS ORDERED: FLEET ENEMA PR ONE (06:00)
[2020-03-20 07:04] LABS: HEMATOCRIT 46.4 % (42.0-52.0); HEMOGLOBIN 14.9 g/dl (13.5-17.5); MEAN CORPUSCULAR HEMOGLOBIN 28.5 pg (27.0-33.0); MEAN CORPUSCULAR HGB CONC 32.1 g/dl (32.0-36.5); MEAN CORPUSCULAR VOLUME 88.7 fl (80.0-96.0); PLATELET COUNT, AUTOMATED 237 10^3/uL (150-450); RED BLOOD COUNT 5.23 10^6/uL (4.30-6.10); WHITE BLOOD COUNT 7.2 10^3/uL (4.0-10.0)
[2020-03-20 07:30] LABS: ALBUMIN 2.9 GM/DL (3.2-5.2); ALT/SGPT 46 U/L (12-78); BILIRUBIN,TOTAL 1.2 MG/DL (0.2-1.0); BLOOD UREA NITROGEN 16 MG/DL (7-18); CALCIUM LEVEL 8.1 MG/DL (8.5-10.1); CARBON DIOXIDE LEVEL 33 MEQ/L (21-32); CHLORIDE LEVEL 102 MEQ/L (98-107); CREATININE FOR GFR 1.03 MG/DL (0.70-1.30); GLOMERULAR FILTRATION RATE > 60.0 (>56); GLUCOSE, FASTING 116 MG/DL (70-100); POTASSIUM SERUM 3.7 MEQ/L (3.5-5.1); SODIUM LEVEL 138 MEQ/L (136-145); TOTAL PROTEIN 5.5 GM/DL (6.4-8.2)
--- NOTE | 2020-03-20 08:39 | IPNPDOC ---
Text Note Date of Service The patient was seen on 03/20/20. NOTE No acute events overnight. He is feeling much improved this am, and has had a few large BMs. VSSAF NAD abd - soft, slight tenderness on the right side only, mild distention, no rebound or guarding labs - below A) 54y/o male with transverse colon inflammation and partial vs. complete obstruction. P) npo to OR for colonoscopy today If scope shows mass or stricture, then I will plan for surgical resection on Monday. If it shows inflammation, then I will biopsy and plan for a trial of steroids. Anurag Soto DO VS,Fishbone, I+O VS, Fishbone, I+O Laboratory Tests 03/20/20 06:53 Vital Signs Date Time Temp Pulse Resp B/P (MAP) Pulse Ox O2 Delivery O2 Flow Rate FiO2 03/20/20 06:38 99.9 83 20 116/64 (81) 97 Room Air I&O- Last 24 Hours up to 6 AM 03/20/20 06:01 Intake Total 240 ml Output Total 800 ml Balance -560 ml CONCETTA SOTO DO March 20, 2020 08:39
[2020-03-20] MEDS: DICYCLOMINE 10 MG CAP PO SCH ×2 (08:40→22:44)
[2020-03-20] MEDS: PANTOPRAZOLE 40MG VIAL (C9113 PER 1) IV SCH (08:40)
[2020-03-20] MEDS ORDERED: propofoL 200 MG/20 ML VIAL As Ordered ONE ×3 (15:57→16:16)
--- NOTE | 2020-03-20 16:44 | ROOR ---
Patient Name: Benjamin Salgado Procedure Date: 03/20/2020 3:56 PM Date of : 1965 Age: 54 Room: [facility] Gender: Male Note Status: Finalized Procedure: Colonoscopy Indications: Abnormal CT of the GI tract Providers: DO Praveen Sheriff MD: 2. Inpatient 2. Inpatient Requesting Provider: Medicines: Propofol per Anesthesia Complications: No immediate complications. Procedure: Pre-Anesthesia Assessment: - Prior to the procedure, a History and Physical was performed, and patient medications and allergies were reviewed. The patient is competent. The risks and benefits of the procedure and the sedation options and risks were discussed with the patient. All questions were answered and informed consent was obtained. Patient identification and proposed procedure were verified by the physician, the nurse, the anesthesiologist and the central supply technician supervisor in the endoscopy suite. Mental Status Examination: alert and oriented. Airway Examination: normal oropharyngeal airway and neck mobility. Respiratory Examination: clear to auscultation. CV Examination: normal. Prophylactic Antibiotics: The patient does not require prophylactic antibiotics. Prior Anticoagulants: The patient has taken no previous anticoagulant or antiplatelet agents. ASA Grade Assessment: II - A patient with mild systemic disease. After reviewing the risks and benefits, the patient was deemed in satisfactory condition to undergo the procedure. The anesthesia plan was to use monitored anesthesia care (MAC). Immediately prior to administration of medications, the patient was re-assessed for adequacy to receive sedatives. The heart rate, respiratory rate, oxygen saturations, blood pressure, adequacy of pulmonary ventilation, and response to care were monitored throughout the procedure. The physical status of the patient was re-assessed after the procedure. The Colonoscope was introduced through the anus with the intention of advancing to the cecum. The scope was advanced to the transverse colon before the procedure was aborted. Medications were not given. The colonoscopy was performed without difficulty. The patient tolerated the procedure well. The colonoscopy was aborted due to a partially obstructing mass. Findings: A fungating completely obstructing large mass was found in the mid transverse colon. The mass was circumferential. Oozing was present. Biopsies were taken with a cold forceps for histology. Area was tattooed with an injection of 2 mL of Stefanie ink. Estimated blood loss was minimal. Impression: - The procedure was aborted due to partially obstructing mass. 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 Biopsied. Tattooed. Recommendation: - Patient has a contact number available for emergencies. The signs and symptoms of potential delayed complications were discussed with the patient. Return to normal activities tomorrow. Written discharge instructions were provided to the patient. - Return patient to [facility] for [facility] care. - Await pathology results. Varinder Soto DO 03/20/2020 4:43:44 PM Electronically signed by Varinder Soto DO Number of Addenda: 0 Note Initiated On: 03/20/2020 3:56 PM Estimated Blood Loss: Estimated blood loss was minimal.
[2020-03-20] MEDS ORDERED: FAT EMULSION IV 20% 500 ML IV SCH (18:00)
[2020-03-20] MEDS ORDERED: DEXTROSE 50% 50 ML SYRINGE IV PRN (20:15)
[2020-03-20] MEDS ORDERED: ACETAMINOPHEN 650 MG SUPP PR PRN (20:15)
[2020-03-20] MEDS ORDERED: GLUCAGON INJ 1MG VIAL SC PRN (20:15)
--- NOTE | 2020-03-20 22:18 | IPNPDOC ---
Date Seen The patient was seen on 03/20/20. Progress Note SUBJECTIVE: Benjamin was seen and examined late this afternoon by the hospitalist service while lying in bed. He had recently returned from a colonoscopy performed by Dr. Soto that showed a completely obstructing mass in his transverse colon. The mass was subsequently biopsied. Upon his return to the floor, he continued with NG tube suction. He reports no significant improvement in abdominal distention from yesterday, and has not had any recent flatus or eructation. He continues to endorse consistent mild ache over central abdomen. He denies any fever, chills, night sweats, chest pain, or palpitations. OBJECTIVE PHYSICAL EXAMINATION: VITAL SIGNS: Please see below. GENERAL APPEARANCE: Laying on his right side in bed. Appears to still be in moderate discomfort. NGT in place and unclamped. Alert and oriented 3 HEENT: NGT present through right nare. PERRLA. Noninjected, anicteric sclera. RESPIRATORY: Lungs are clear to auscultation bilaterally with no adventitious breath sounds appreciated CARDIOVASCULAR: Regular rate, regular rhythm. +S1, S2 with no murmurs/rubs/gallops appreciated. ABDOMEN: Moderate distention with tenderness periumbilically. Tinkling bowel sounds throughout. No guarding or rigidity. NGT container shows about 400cc of dark brown/green fluid. EXTREMITIES: 2+ radial pulses bilaterally. No signs of cyanosis. SKIN: warm and dry NEUROLOGICAL: Awake, alert and oriented 3. No focal neurologic deficits appreciated. Non-dysarthric speech. PSYCHIATRIC: Reserved mood. Affect appears appropriate. LABORATORY DATA, IMAGING STUDIES, MICROBIOLOGY: Please see below. ASSESSMENT AND PLAN: This is a 54yo male w/o no significant pmhx who presented on 03/18 to ED with 10/10 diffuse, sharp abdominal pain with associated emesis; found to have obstruction of prox transverse colon w/ small bowel and large bowel dilation proximally and potential stricture on imaging. Admitted for bowel obstruction. #Proximal transverse colon bowel obstruction with dilation of small and large bowel proximally -taken for colonoscopy this afternoon with Dr. Soto of general surgery that revealed a completely obstructing mass in the transverse colon that was subsequently biopsied. -plan is for pt to go to the OR on Monday, 03/23 for a resection. -prior to Monday's surgery, pt will remain npo except sips and chips and will receive peripheral parenteral nutrition. A PICC line will be inserted Monday so pt can begin tpn once surgery is done. -c/w NGT to LIS, morphine prn for pain, and zofran prn for nausea -will d/c dvt prophylaxis on Monday in preparation for Monday's surgery -Dr. Soto of general surgery has been consulted. Hospitalist service appreciates continued collaboration and recommendations. Disposition: Pending results of bx from scope today and resection surgery on Monday. Attending attestation: I evaluated and examined the patient in person; I discussed the care with Resident in detail and agree with the plan above. VS, I&O, 24H, Fishbone Vital Signs/I&O Vital Signs Date Time Temp Pulse Resp B/P (MAP) Pulse Ox O2 Delivery O2 Flow Rate FiO2 03/20/20 18:30 100.3 68 16 142/70 (94) 98 03/20/20 14:00 Room Air I&O- Last 24 Hours up to 6 AM 03/20/20 06:00 Intake Total 240 ml Output Total 800 ml Balance -560 ml Laboratory Data 24H LABS Laboratory Tests 2 03/20/20 06:53: Nucleated Red Blood Cells % (auto) 0.0, Anion Gap 3L, Glomerular Filtration Rate > 60.0, Calcium Level 8.1L, Total Bilirubin 1.2H, Aspartate Amino Transf (AST/SGOT) 15, Alanine Aminotransferase (ALT/SGPT) 46, Alkaline Phosphatase 54, Total Protein 5.5L, Albumin 2.9L, Albumin/Globulin Ratio 1.1 CBC/BMP Laboratory Tests 03/20/20 06:53 Microbiology Microbiology 03/19/20 Coronavirus COVID-19 PCR ([facility]ALJIT) - Final, Complete MARGIE NELSON D.O. March 20, 2020 22:18 CHINTAN GIBSON MD Mar 25, 2020 21:39
[2020-03-21] MEDS: AMINO AC/ELECTROLYTE/DEX/CALC 1,000 ML IV SCH ×2 (01:17→15:48)
[2020-03-21 02:00] VITALS: BP 126/54
[2020-03-21] MEDS: HumaLOG INSULIN (NovoLOG) PER UNIT SC SCH ×5 (05:59→23:56)
[2020-03-21 06:00] VITALS: BP 146/81
[2020-03-21 07:09] LABS: HEMATOCRIT 43.9 % (42.0-52.0); HEMOGLOBIN 14.4 g/dl (13.5-17.5); MEAN CORPUSCULAR HEMOGLOBIN 29.4 pg (27.0-33.0); MEAN CORPUSCULAR HGB CONC 32.8 g/dl (32.0-36.5); MEAN CORPUSCULAR VOLUME 89.8 fl (80.0-96.0); PLATELET COUNT, AUTOMATED 210 10^3/uL (150-450); RED BLOOD COUNT 4.89 10^6/uL (4.30-6.10)
[2020-03-21 07:32] LABS: ALBUMIN 2.6 GM/DL (3.2-5.2); ALT/SGPT 37 U/L (12-78); BILIRUBIN,TOTAL 0.6 MG/DL (0.2-1.0); BLOOD UREA NITROGEN 12 MG/DL (7-18); CALCIUM LEVEL 7.8 MG/DL (8.5-10.1); CARBON DIOXIDE LEVEL 31 MEQ/L (21-32); CHLORIDE LEVEL 103 MEQ/L (98-107); CREATININE FOR GFR 0.94 MG/DL (0.70-1.30); GLOMERULAR FILTRATION RATE > 60.0 (>56); GLUCOSE, FASTING 102 MG/DL (70-100); POTASSIUM SERUM 3.6 MEQ/L (3.5-5.1); SODIUM LEVEL 141 MEQ/L (136-145); TOTAL PROTEIN 5.6 GM/DL (6.4-8.2)
[2020-03-21] MEDS: DICYCLOMINE 10 MG CAP PO SCH ×2 (09:20→21:28)
[2020-03-21] MEDS: PANTOPRAZOLE 40MG VIAL (C9113 PER 1) IV SCH (09:20)
[2020-03-21 10:00] VITALS: BP 127/69
--- NOTE | 2020-03-21 10:02 | IPNPDOC ---
Text Note Date of Service The patient was seen on 03/21/20. NOTE No acute events overnight. He said he had a little fever, but he feels much more alert and has more energy today. VSSAF NAD abd - soft, slight tenderness on the right side only, mild distention, no rebound or guarding labs - below A) 54y/o male s/p colonoscopy that shows transverse colon mass P) sips and chips TPN ambulate in halls plan for OR on Monday for transverse colon resection Anurag Soto DO VS,Fishbone, I+O VS, Fishbone, I+O Laboratory Tests 03/21/20 06:46 Vital Signs Date Time Temp Pulse Resp B/P (MAP) Pulse Ox O2 Delivery O2 Flow Rate FiO2 03/21/20 06:00 98.4 70 19 146/81 (102) 94 Room Air I&O- Last 24 Hours up to 6 AM 03/21/20 06:00 Intake Total 2160 ml Output Total 2775 ml Balance -615 ml CONCETTA SOTO DO March 21, 2020 10:02
[2020-03-21] MEDS ORDERED: FAT EMULSION IV 20% 500 ML IV SCH (18:00)
--- NOTE | 2020-03-21 19:20 | IPNPDOC ---
Date Seen The patient was seen on 03/21/20. Progress Note SUBJECTIVE: Benjamin was seen and examined this morning by the hospitalist service while lying on his left side in bed. He reports being in less discomfort overall versus yesterday. He has been ambulating well and had 2 bowel movements since we saw him last evening. His abdominal distention and discomfort is improved somewhat over yesterday. He did have a slight fever overnight but it has since resolved. He denies any nausea, vomiting, chills, night sweats, chest pain, palpitations, or shortness of breath. OBJECTIVE PHYSICAL EXAMINATION: VITAL SIGNS: Please see below. GENERAL APPEARANCE: Laying on his left side in bed. Appears to be in less discomfort this morning versus previous days. More interactive today. NGT in place and unclamped. Alert and oriented 3 HEENT: NGT present through right nare. PERRLA. Noninjected, anicteric sclera. RESPIRATORY: Lungs are clear to auscultation bilaterally with no adventitious breath sounds appreciated CARDIOVASCULAR: Regular rate, regular rhythm. +S1, S2 with no murmurs/rubs/gallops appreciated. ABDOMEN: Moderate distention with tenderness periumbilically. Tinkling bowel sounds throughout. No guarding or rigidity. NGT container shows about 700cc of dark brown/green fluid. EXTREMITIES: 2+ radial pulses bilaterally. No signs of cyanosis. SKIN: warm and dry NEUROLOGICAL: Awake, alert and oriented 3. No focal neurologic deficits appreciated. Non-dysarthric speech. PSYCHIATRIC: Reserved mood. Affect appears appropriate. LABORATORY DATA, IMAGING STUDIES, MICROBIOLOGY: Please see below. ASSESSMENT AND PLAN: This is a 54yo male w/o no significant pmhx who presented on 03/18 to ED with 10/10 diffuse, sharp abdominal pain with associated emesis; found to have obstruction of prox transverse colon w/ small bowel and large bowel d ilation proximally and potential stricture on imaging. Admitted for bowel obstruction 2/2 mass seen on 03/20 scope with 03/23 resection to follow. #Complete obstruction of tranverse colon 2/2 colonic mass -colonoscopy done yesterday with Dr. Soto of general surgery revealed a completely obstructing mass in the transverse colon; bx results pending -plan is for pt to go to the OR on Monday, 03/23 for a transverse colon resection. -prior to Monday's surgery, pt will remain npo except sips and chips and will receive peripheral parenteral nutrition. A PICC line will be inserted Monday so pt can begin tpn once surgery is done. -c/w NGT to LIS, morphine prn for pain, and zofran prn for nausea -pt is encouraged to ambulate -will d/c dvt prophylaxis on Monday in preparation for surgery -Dr. Soto of general surgery has been consulted. Hospitalist service appreciates continued collaboration and recommendations. #DVT prophylaxis: sc lovenox to be given tonight and held tomorrow in prep for 03/23 sx Disposition: Transverse colon resection planned for Mon, 03/23 and pending bx results from yesterday's scope Attending attestation: I evaluated and examined the patient in person; I discussed the care with Resident in detail and agree with the plan above. VS, I&O, 24H, Fishbone Vital Signs/I&O Vital Signs Date Time Temp Pulse Resp B/P (MAP) Pulse Ox O2 Delivery O2 Flow Rate FiO2 03/21/20 10:00 98.7 69 18 127/69 (88) 95 Room Air I&O- Last 24 Hours up to 6 AM 03/21/20 06:00 Intake Total 2160 ml Output Total 2775 ml Balance -615 ml Laboratory Data 24H LABS Laboratory Tests 2 03/21/20 05:52: Bedside Glucose (Misc Panel) 111H 03/21/20 06:46: Nucleated Red Blood Cells % (auto) 0.0, Anion Gap 7L, Glomerular Filtration Rate > 60.0, Calcium Level 7.8L, Total Bilirubin 0.6, Aspartate Amino Transf (AST/SG OT) 13, Alanine Aminotransferase (ALT/SGPT) 37, Alkaline Phosphatase 53, Total Protein 5.6L, Albumin 2.6L, Albumin/Globulin Ratio 0.9 03/21/20 12:02: Bedside Glucose (Misc Panel) 100 CBC/BMP Laboratory Tests 03/21/20 06:46 Microbiology Microbiology 03/19/20 Coronavirus COVID-19 PCR ([facility]IT) - Final, Complete MARGIE NELSON D.O. March 21, 2020 19:20 CHINTAN GIBSON MD Mar 26, 2020 23:35
[2020-03-21] MEDS ORDERED: ENOXAPARIN 40MG/0.4ML SYRINGE (J1650 PER 10MG) SC ONE (20:00)
[2020-03-21 22:00] VITALS: BP 142/79
[2020-03-22] MEDS: AMINO AC/ELECTROLYTE/DEX/CALC 1,000 ML IV SCH ×2 (05:33→17:56)
[2020-03-22] MEDS: HumaLOG INSULIN (NovoLOG) PER UNIT SC SCH ×4 (05:38→23:29)
[2020-03-22 06:00] VITALS: BP 140/77
[2020-03-22 06:58] LABS: HEMATOCRIT 45.5 % (42.0-52.0); MEAN CORPUSCULAR HEMOGLOBIN 29.1 pg (27.0-33.0); MEAN CORPUSCULAR VOLUME 88.2 fl (80.0-96.0); PLATELET COUNT, AUTOMATED 223 10^3/uL (150-450); RED BLOOD COUNT 5.16 10^6/uL (4.30-6.10); WHITE BLOOD COUNT 7.4 10^3/uL (4.0-10.0)
[2020-03-22 07:32] LABS: ALBUMIN 2.9 GM/DL (3.2-5.2); ALT/SGPT 35 U/L (12-78); BILIRUBIN,TOTAL 0.5 MG/DL (0.2-1.0); BLOOD UREA NITROGEN 11 MG/DL (7-18); CALCIUM LEVEL 8.4 MG/DL (8.5-10.1); CARBON DIOXIDE LEVEL 32 MEQ/L (21-32); CHLORIDE LEVEL 101 MEQ/L (98-107); CREATININE FOR GFR 0.91 MG/DL (0.70-1.30); GLOMERULAR FILTRATION RATE > 60.0 (>56); GLUCOSE, FASTING 103 MG/DL (70-100); POTASSIUM SERUM 3.6 MEQ/L (3.5-5.1); SODIUM LEVEL 138 MEQ/L (136-145); TOTAL PROTEIN 6.2 GM/DL (6.4-8.2)
[2020-03-22] MEDS: PANTOPRAZOLE 40MG VIAL (C9113 PER 1) IV SCH (08:15)
[2020-03-22] MEDS: DICYCLOMINE 10 MG CAP PO SCH ×2 (08:16→21:27)
--- NOTE | 2020-03-22 08:28 | IPNPDOC ---
Text Note Date of Service The patient was seen on 03/22/20. NOTE No acute events overnight. He did not get to walk or get his enema yesterday. Because of this he is very unhappy with the nursing staff, and would like to be moved to another floor. VSSAF NAD abd - soft, slight non tender, mild distention, no rebound or guarding labs - below A) 54y/o male s/p colonoscopy that shows transverse colon mass P) sips and chips TPN ambulate in halls enema BID today plan for OR on Monday for transverse colon resection Anurag Soto DO VS,Fishbone, I+O VS, Fishbone, I+O Laboratory Tests 03/22/20 06:45 Vital Signs Date Time Temp Pulse Resp B/P (MAP) Pulse Ox O2 Delivery O2 Flow Rate FiO2 03/22/20 06:00 99.5 66 18 140/77 (98) 95 Room Air I&O- Last 24 Hours up to 6 AM0 03/22/20 05:59 Intake Total 600 ml Output Total 2325 ml Balance -1725 ml CONCETTA SOTO DO March 22, 2020 08:28
[2020-03-22] MEDS: FLEET ENEMA PR SCH ×2 (08:42→21:27)
[2020-03-22] MEDS ORDERED: ENOXAPARIN 40MG/0.4ML SYRINGE (J1650 PER 10MG) SC ONE (09:15)
[2020-03-22 14:00] VITALS: BP 137/77
--- NOTE | 2020-03-22 14:17 | IPNPDOC ---
Date Seen The patient was seen on 03/22/20. Progress Note SUBJECTIVE: 54-year-old male was admitted for small/large bowel obstruction, underwent colonoscopy which showed an obstructing colonic mass, pathology pending. Patient is tentatively scheduled for partial colon resection tomorrow. He remains on PPN, continues to have small volume bowel movements, denies any nausea, having mild to moderate abdominal pain, well controlled at this time. He has no additional complaints. He denies any chest pain, shortness of breath, or headaches. 10 point review of system is negative except for above PHYSICAL EXAMINATION: VITAL SIGNS: Please see below. GENERAL: No distress HEENT: Normocephalic, atraumatic, NG tube in place NECK: Supple CARDIOVASCULAR EXAMINATION: S1, S2, no murmurs RESPIRATORY EXAMINATION: Clear to auscultation, no wheezing ABDOMINAL EXAMINATION: Soft, nontender, nondistended, positive bowel sounds EXTREMITIES: Range of motion intact SKIN: No rash NEUROLOGICAL EXAMINATION: Alert and oriented 3, no focal deficits PSYCHIATRIC EXAMINATION: Calm and cooperative LABORATORY DATA, IMAGING STUDIES, MICROBIOLOGY: Please see below. ASSESSMENT AND PLAN: 54-year-old male admitted for small/large bowel obstruction, found to have an obstructing lesion in the colon via colonoscopy. PROBLEMS: 1. Small/large bowel obstruction: Secondary to obstructing lesion in the colon seen via colonoscopy, pathology pending, scheduled for colon resection tomorrow, NG tube in place, on PPN, plan for TPN after PICC line insertion, general surgery following. DVT prophylaxis: Lovenox. GI prophylaxis: PPI VS, I&O, 24H, Fishbone Vital Signs/I&O Vital Signs Date Time Temp Pulse Resp B/P (MAP) Pulse Ox O2 Delivery O2 Flow Rate FiO2 03/22/20 06:00 99.5 66 18 140/77 (98) 95 Room Air I&O- Last 24 Hours up to 6 AM 03/22/20 06:00 Intake Total 600 ml Output Total 2575 ml Balance -1975 ml Laboratory Data 24H LABS Laboratory Tests 2 03/21/20 23:49: Bedside Glucose (Misc Panel) 92 03/22/20 05:31: Bedside Glucose (Misc Panel) 95 03/22/20 06:45: Nucleated Red Blood Cells % (auto) 0.0, Anion Gap 5L, Glomerular Filtration Rate > 60.0, Calcium Level 8.4L, Total Bilirubin 0.5, Aspartate Amino Transf (AST/SGOT) 14, Alanine Aminotransferase (ALT/SGPT) 35, Alkaline Phosphatase 59, Total Protein 6.2L, Albumin 2.9L, Albumin/Globulin Ratio 0.9 03/22/20 11:44: Bedside Glucose (Misc Panel) 95 CBC/BMP Laboratory Tests 03/22/20 06:45 Microbiology Microbiology 03/19/20 Coronavirus COVID-19 PCR ([facility]ALJIT) - Final, Complete CHINTAN GIBSON MD March 22, 2020 14:16
[2020-03-22] MEDS ORDERED: FLEET ENEMA PR SCH (15:00)
[2020-03-22] MEDS ORDERED: FAT EMULSION IV 20% 500 ML IV SCH (18:00)
[2020-03-22 22:00] VITALS: BP 140/76
[2020-03-23] MEDS: HumaLOG INSULIN (NovoLOG) PER UNIT SC SCH ×3 (05:43→18:00)
[2020-03-23 06:00] VITALS: BP 138/77
--- NOTE | 2020-03-23 07:39 | IPNPDOC ---
Date Seen The patient was seen on 03/23/20. Progress Note SUBJECTIVE: 54-year-old white male admitted for SBO and LBO, underwent colonoscopy which showed an obstructing colonic mass with pathology pending. Patient is scheduled for colectomy today with reanastomosis. Pt reported that he has 2 loose bowel movements yesterday without blood in stool, denies any nausea vomiting. Pt denies abdominal pain at the time of the examination, and denies fever or chills. 10 point review of system is negative except for above PHYSICAL EXAMINATION: VITAL SIGNS: Please see below. GENERAL: Pt laying on bed, mildly weak. Not in acte distress HEENT: Normocephalic, atraumatic, NG tube in place NECK: Supple CARDIOVASCULAR EXAMINATION: S1, S2, no murmurs RESPIRATORY EXAMINATION: Clear to auscultation b/l, no wheezing, rhonchi, rales. ABDOMINAL EXAMINATION: Soft, nondistended, positive bowel sounds in all 4 quadrants. No guarding or distention. Mild discomfort without tenderness in all 4 quadrants. SKIN: No obvious rash NEUROLOGICAL EXAMINATION: Alert and oriented 3, no focal neurological deficits or memory deficits PSYCHIATRIC EXAMINATION: Mood stable and appropriate to situation. Cooperative ASSESSMENT AND PLAN: 54-year-old male admitted for small and large bowel obstruction, found to have an obstructing lesion in the colon s/p colonoscopy plan for transverse colectomy today with reanastomosis. PROBLEMS: 1. Small/large bowel obstruction 2/2 transverse colon mass: Secondary to obst ructing lesion likely malignant in the transverse colon seen via colonoscopy, pathology pending. NG tube in place with BM but no N/V. On PPN. Pt scheduled for transverse colon resection today with reanastomosis. DVT prophylaxis: Lovenox. GI prophylaxis: PPI Attending attestation: I evaluated and examined the patient in person; I discussed the care with Resident in detail and agree with the plan above. VS, I&O, 24H, Fishbone Vital Signs/I&O Vital Signs Date Time Temp Pulse Resp B/P (MAP) Pulse Ox O2 Delivery O2 Flow Rate FiO2 03/23/20 06:00 98.8 68 18 138/77 (97) 95 Room Air I&O- Last 24 Hours up to 6 AM 03/23/20 05:59 Intake Total 600 ml Output Total 1700 ml Balance -1100 ml Laboratory Data 24H LABS Laboratory Tests 2 03/22/20 11:44: Bedside Glucose (Misc Panel) 95 03/22/20 17:39: Bedside Glucose (Misc Panel) 96 03/22/20 23:04: Bedside Glucose (Misc Panel) 98 03/23/20 05:11: Bedside Glucose (Misc Panel) 96 Microbiology Microbiology 03/19/20 Coronavirus COVID-19 PCR ([facility]AL[facility]IT) - Final, Complete GME ATTESTATION GME ATTESTATION My faculty preceptor for this patient encounter was physically present during the encounter and was fully available. All aspects of the patient interview, examination, medical decision making process, and medical care plan development were reviewed and approved by the faculty preceptor. The faculty preceptor is aware and concurs with the plan as stated in the body of this note and will attest to such by his/her cosignature. DEUCE MOTLEY DO Mar 23, 2020 07:39 CHINTAN GIBSON MD Mar 27, 2020 13:21
[2020-03-23] MEDS: DICYCLOMINE 10 MG CAP PO SCH (08:52)
[2020-03-23] MEDS: PANTOPRAZOLE 40MG VIAL (C9113 PER 1) IV SCH (08:53)
[2020-03-23] MEDS: AMINO AC/ELECTROLYTE/DEX/CALC 1,000 ML IV SCH (08:53)
[2020-03-23] MEDS: FLEET ENEMA PR SCH (08:53)
--- NOTE | 2020-03-23 09:08 | IPNPDOC ---
Text Note Date of Service The patient was seen on 03/23/20. NOTE No acute events overnight. He did get his two enemas yesterday, and had a few BMs. No complaints this am. VSSAF NAD abd - soft, non tender, mild distention, no rebound or guarding labs - below A) 54y/o male s/p colonoscopy that shows transverse colon mass P) NPO PPN ambulate in halls OR for transverse colon resection today Anurag Soto DO VS,Fishpapitoe, I+O VS, Fishpapitoe, I+O Vital Signs Date Time Temp Pulse Resp B/P (MAP) Pulse Ox O2 Delivery O2 Flow Rate FiO2 03/23/20 06:00 98.8 68 18 138/77 (97) 95 Room Air I&O- Last 24 Hours up to 6 AM 03/23/20 06:00 Intake Total 1580 ml Output Total 1850 ml Balance -270 ml CONCETTA SOTO DO Mar 23, 2020 09:08
[2020-03-23] MEDS ORDERED: propofoL 200 MG/20 ML VIAL As Ordered ONE (13:24)
[2020-03-23] MEDS ORDERED: LIDOCAINE 2% 100MG/5ML SDV (FOR ANES.) As Ordered ONE (13:24)
[2020-03-23] MEDS ORDERED: ROCURONIUM BROMIDE 50 MG/5 ML VIAL As Ordered ONE ×3 (13:24→17:49)
[2020-03-23] MEDS ORDERED: fentaNYL 250 MCG/5 ML INJECTION (J3010) As Ordered ONE ×2 (13:24→17:29)
[2020-03-23] MEDS ORDERED: MIDAZOLAM INJ 2MG/2ML VIAL (J2250 PER 1MG) As Ordered ONE (13:25)
[2020-03-23] MEDS ORDERED: BUPIVACAINE/EPIN 0.25% 30 ML VIAL As Ordered ONE (13:33)
[2020-03-23] MEDS ORDERED: ERTAPENEM 1GM VIAL(INVanz) (J1335 PER 500MG) As Ordered ONE (14:44)
[2020-03-23] MEDS ORDERED: LACRILUBE (AKWA TEARS) OPHTH OINT 3.5 GM As Ordered ONE (15:15)
[2020-03-23] MEDS ORDERED: SUCCINYLCHOLINE 100 MG/5 ML SYRINGE (J0330) As Ordered ONE (15:16)
[2020-03-23] MEDS ORDERED: HYDROmorphone HCL 2 MG/ML 1ML VIAL (J1170) As Ordered ONE (15:46)
[2020-03-23] MEDS ORDERED: DESFLURANE 240 ML INHALANT As Ordered ONE (16:01)
[2020-03-23] MEDS ORDERED: FAT EMULSION IV 20% 500 ML IV SCH (18:00)
[2020-03-23] MEDS ORDERED: SUGAMMADEX SODIUM 500 MG/5 ML VIAL (BRIDION) As Ordered ONE (18:49)
[2020-03-23] MEDS ORDERED: KETOROLAC 60 MG/2 ML VIAL As Ordered ONE (18:49)
[2020-03-23] MEDS ORDERED: dexameTHASONE 4 MG/ML 1ML VIAL (J1100 PER 1MG) As Ordered ONE (19:02)
[2020-03-23] MEDS ORDERED: ONDANSETRON 4MG/2ML VIAL As Ordered ONE (19:16)
[2020-03-23] MEDS ORDERED: fentaNYL 100 MCG/2 ML INJECTION (J3010) As Ordered ONE (19:44)
[2020-03-23] MEDS ORDERED: oxyCODONE 5MG TAB PO PRN (19:45)
[2020-03-23] MEDS ORDERED: ONDANSETRON 4MG/2ML VIAL IV PRN (19:45)
[2020-03-23] MEDS ORDERED: LR 1,000 ML IV SCH (19:45)
[2020-03-23] MEDS: fentaNYL 100 MCG/2 ML INJECTION (J3010) IV PRN ×4 (19:46→20:02)
[2020-03-23] MEDS ORDERED: HYDROMORPHONE HCL 0.5 MG/ 0.5 ML SYRINGE (J1170 PER 1) As Ordered ONE ×4 (19:58→20:31)
[2020-03-23] MEDS: HYDROMORPHONE HCL 0.5 MG/ 0.5 ML SYRINGE (J1170 PER 1) IV PRN ×5 (20:00→20:52)
[2020-03-23] MEDS ORDERED: ZOSYN 3.375GM VIAL (J2543) As Ordered ONE (21:20)
[2020-03-23] MEDS: PIPERACILLIN/TAZOBACTAM SOD 3.375 GM in D5W MINI-BAG PLUS 50 ML IV SCH (21:44)
[2020-03-23 22:00] VITALS: BP 131/83
[2020-03-23 22:30] VITALS: BP 151/80
[2020-03-23 23:30] VITALS: BP 149/78
[2020-03-24] VITALS (9 sets, daily range): BP systolic 137–149; BP diastolic 55–88; O2SAT 96
[2020-03-24] MEDS: NS 1,000 ML IV SCH ×2 (00:40→18:11)
[2020-03-24] MEDS: AMINO AC/ELECTROLYTE/DEX/CALC 1,000 ML IV SCH ×2 (00:40→14:19)
[2020-03-24] MEDS: PIPERACILLIN/TAZOBACTAM SOD 3.375 GM in D5W MINI-BAG PLUS 50 ML IV SCH ×4 (03:20→21:14)
[2020-03-24] MEDS: HumaLOG INSULIN (NovoLOG) PER UNIT SC SCH ×4 (06:00→18:00)
[2020-03-24 06:19] LABS: HEMATOCRIT 43.3 % (42.0-52.0); MEAN CORPUSCULAR HEMOGLOBIN 28.7 pg (27.0-33.0); MEAN CORPUSCULAR HGB CONC 32.3 g/dl (32.0-36.5); MEAN CORPUSCULAR VOLUME 88.9 fl (80.0-96.0); PLATELET COUNT, AUTOMATED 217 10^3/uL (150-450); RED BLOOD COUNT 4.87 10^6/uL (4.30-6.10); WHITE BLOOD COUNT 13.7 10^3/uL (4.0-10.0)
[2020-03-24] MEDS: KETOROLAC 30 MG/ML 1ML VIAL IV PRN ×3 (06:47→22:07)
--- NOTE | 2020-03-24 08:24 | IPNPDOC ---
Text Note Date of Service The patient was seen on 03/24/20. NOTE No acute events overnight. He denies nausea, emesis, fevers, or flatus. His pain is controlled. VSSAF NAD abd - soft, TTP appropriate, dressings c/d/i, drain in place with serosanguinous output labs - below A) 54y/o male s/p colonoscopy that shows transverse colon mass POD#1 s/p extended rt hemicolectomy P) sips and chips PPN ambulate in halls IS await return of bowel function Anurag Soto DO VS,Fishbone, I+O VS, Fishbone, I+O Laboratory Tests 03/24/20 06:03 Vital Signs Date Time Temp Pulse Resp B/P (MAP) Pulse Ox O2 Delivery O2 Flow Rate FiO2 03/24/20 06:00 99.4 84 16 139/88 (105) 98 Nasal Cannula 2.0 I&O- Last 24 Hours up to 6 AM 03/24/20 06:00 Intake Total 4090 ml Output Total 3095 ml Balance 995 ml CONCETTA SOTO DO Mar 24, 2020 08:24
[2020-03-24] MEDS: ENOXAPARIN 40MG/0.4ML SYRINGE (J1650 PER 10MG) SC SCH (08:51)
[2020-03-24] MEDS: PANTOPRAZOLE 40MG VIAL (C9113 PER 1) IV SCH (08:51)
[2020-03-24] MEDS: NORCO, ANEXSIA 5/325MG TABLET (HYDROcodone/ACETAMINOPHEN) PO PRN ×3 (08:52→21:14)
[2020-03-24 10:15] LABS: BLOOD UREA NITROGEN 14 MG/DL (7-18); CALCIUM LEVEL 7.9 MG/DL (8.5-10.1); CARBON DIOXIDE LEVEL 29 MEQ/L (21-32); CHLORIDE LEVEL 106 MEQ/L (98-107); CREATININE FOR GFR 1.06 MG/DL (0.70-1.30); GLOMERULAR FILTRATION RATE > 60.0 (>56); GLUCOSE, FASTING 147 MG/DL (70-100); POTASSIUM SERUM 4.8 MEQ/L (3.5-5.1); SODIUM LEVEL 140 MEQ/L (136-145)
--- NOTE | 2020-03-24 16:59 | IPNPDOC ---
Date Seen The patient was seen on 03/24/20. Progress Note SUBJECTIVE: 54-year-old white male admitted for SBO and LBO, underwent colonoscopy which showed an obstructing colonic mass with pathology pending. Patient underwent extended right hemicolectomy with reanastomosis on 03/23/2020 evening. He denies any fever, chills, nausea, or vomiting, revealed mild to mod abdominal pain which he is unable to pinpoint, but he feels overall better compared to yesterday. Pt is currently NPO on PPN. Pt reported no BM or not passing gas yet. 10 point review of system is negative except for above PHYSICAL EXAMINATION: VITAL SIGNS: Please see below. GENERAL: Pt laying on bed. Not in acte distress, alert and awake HEENT: Normocephalic, atraumatic, NG tube in place with mild amount of clear fluid in place NECK: Supple CARDIOVASCULAR EXAMINATION: S1, S2, no murmurs RESPIRATORY EXAMINATION: Clear to auscultation b/l, no wheezing, rhonchi, rales. ABDOMINAL EXAMINATION: Soft, nondistended, no obvious/hypoactive bowel sounds aus. No guarding or distention. Gauzes covered most of ventral abdomen SKIN: No obvious rash NEUROLOGICAL EXAMINATION: Alert and oriented 3, no focal neurological deficits or memory deficits PSYCHIATRIC EXAMINATION: Mood stable and appropriate to situation. Cooperative ASSESSMENT AND PLAN: 54 yo male admitted for small and large bowel obstruction, found to have an obstructing lesion in the colon s/p colonoscopy and s/p extensi ve right colectomy with reanastomosis. PROBLEMS: 1. Small/large bowel obstruction 2/2 transverse colon mass: Secondary to obstructing lesion likely malignant in the transverse colon seen via colonosc opy, pathology from colonoscopy showed high-grade dysplasia suspicious for invasive adenocarcinoma. Right hemicolectomy pathology pending. NG tube in place without N/V. On PPN. Pt pending diet advancement per surgery team. DVT prophylaxis: Lovenox. GI prophylaxis: PPI Attending attestation: I evaluated and examined the patient in person; I discussed the care with Resident in detail and agree with the plan above. VS, I&O, 24H, Fishbone Vital Signs/I&O Vital Signs Date Time Temp Pulse Resp B/P (MAP) Pulse Ox O2 Delivery O2 Flow Rate FiO2 03/24/20 15:44 16 03/24/20 14:00 98.3 69 138/83 (101) 95 Room Air 03/24/20 06:00 2.0 I&O- Last 24 Hours up to 6 AM 03/24/20 06:00 Intake Total 4090 ml Output Total 3095 ml Balance 995 ml Laboratory Data 24H LABS Laboratory Tests 2 03/23/20 21:11: Bedside Glucose (Misc Panel) 146H 03/23/20 23:30: Bedside Glucose (Misc Panel) 161H 03/24/20 00:30: Bedside Glucose (Misc Panel) 164H 03/24/20 03:03: Bedside Glucose (Misc Panel) 145H 03/24/20 06:03: Nucleated Red Blood Cells % (auto) 0.0, Anion Gap 5L, Glomerular Filtration Rate > 60.0, Calcium Level 7.9L 03/24/20 06:14: Bedside Glucose (Misc Panel) 139H 03/24/20 11:51: Bedside Glucose (Misc Panel) 117H CBC/BMP Laboratory Tests 03/24/20 06:03 Microbiology Microbiology 03/19/20 Coronavirus COVID-19 PCR ([facility]) - Final, Complete GME ATTESTATION GME ATTESTATION My faculty preceptor for this patient encounter was physically present during th e encounter and was fully available. All aspects of the patient interview, examination, medical decision making process, and medical care plan development were reviewed and approved by the faculty preceptor. The faculty preceptor is aware and concurs with the plan as stated in the body of this note and will attest to such by his/her cosignature. DEUCE MOTLEY DO Mar 24, 2020 16:59 CHINTAN GIBSON MD Mar 30, 2020 08:19
[2020-03-24] MEDS ORDERED: FAT EMULSION IV 20% 500 ML IV SCH (18:00)
[2020-03-25] MEDS: AMINO AC/ELECTROLYTE/DEX/CALC 1,000 ML IV SCH ×2 (02:52→17:26)
[2020-03-25] MEDS: PIPERACILLIN/TAZOBACTAM SOD 3.375 GM in D5W MINI-BAG PLUS 50 ML IV SCH ×4 (02:52→21:07)
[2020-03-25] MEDS: NORCO, ANEXSIA 5/325MG TABLET (HYDROcodone/ACETAMINOPHEN) PO PRN ×4 (02:53→21:07)
[2020-03-25 06:00] VITALS: BP 124/78
[2020-03-25] MEDS: HumaLOG INSULIN (NovoLOG) PER UNIT SC SCH ×4 (06:00→17:27)
[2020-03-25] MEDS: KETOROLAC 30 MG/ML 1ML VIAL IV PRN ×3 (06:32→22:18)
[2020-03-25 06:54] LABS: HEMATOCRIT 40.7 % (42.0-52.0); MEAN CORPUSCULAR HEMOGLOBIN 28.8 pg (27.0-33.0); MEAN CORPUSCULAR HGB CONC 31.9 g/dl (32.0-36.5); PLATELET COUNT, AUTOMATED 189 10^3/uL (150-450); RED BLOOD COUNT 4.52 10^6/uL (4.30-6.10); WHITE BLOOD COUNT 8.4 10^3/uL (4.0-10.0)
[2020-03-25 07:23] LABS: BLOOD UREA NITROGEN 12 MG/DL (7-18); CALCIUM LEVEL 7.9 MG/DL (8.5-10.1); CARBON DIOXIDE LEVEL 28 MEQ/L (21-32); CHLORIDE LEVEL 104 MEQ/L (98-107); CREATININE FOR GFR 0.98 MG/DL (0.70-1.30); GLOMERULAR FILTRATION RATE > 60.0 (>56); GLUCOSE, FASTING 97 MG/DL (70-100); POTASSIUM SERUM 4.2 MEQ/L (3.5-5.1); SODIUM LEVEL 138 MEQ/L (136-145)
--- NOTE | 2020-03-25 08:03 | IPNPDOC ---
Text Note Date of Service The patient was seen on 03/25/20. NOTE No acute events overnight. He denies nausea, emesis, fevers, or flatus. His pain is controlled, and he was able to make 5 laps in the adorno yesterday. VSSAF NAD abd - soft, TTP appropriate, dressings c/d/i, drain in place with serosanguinous output labs - below A) 54y/o male s/p colonoscopy that shows transverse colon mass, path shows high grade dysplasia POD#2 s/p extended rt hemicolectomy P) sips and chips PPN ambulate in halls IS await return of bowel function, once he passes flatus, he can have his NG clamped and clq diet Anurag Soto DO VS,Idania, I+O VS, Idania, I+O Laboratory Tests 03/25/20 06:45 Vital Signs Date Time Temp Pulse Resp B/P (MAP) Pulse Ox O2 Delivery O2 Flow Rate FiO2 03/25/20 06:00 97.9 85 19 124/78 (93) 94 Room Air 03/24/20 06:00 2.0 I&O- Last 24 Hours up to 6 AM 03/25/20 06:00 Intake Total 4260 ml Output Total 3570 ml Balance 690 ml CONCETTA SOTO DO Mar 25, 2020 08:03
[2020-03-25] MEDS: PANTOPRAZOLE 40MG VIAL (C9113 PER 1) IV SCH (08:55)
[2020-03-25] MEDS: ENOXAPARIN 40MG/0.4ML SYRINGE (J1650 PER 10MG) SC SCH (08:55)
--- NOTE | 2020-03-25 11:00 | IPNPDOC ---
Date Seen The patient was seen on 03/25/20. Progress Note SUBJECTIVE: 54-year-old white male admitted for SBO and LBO, underwent colonoscopy which showed an obstructing colonic mass with pathology pending. Patient underwent extended right hemicolectomy with reanastomosis on 03/23/2020 evening. He denies any fever, chills, nausea, or vomiting. Pt is still on NPO on PPN. Pt reported no BM or not passing gas yet. Pt did indicate that he has an appetite and would like to eat if he can. 10 point review of system is negative except for above PHYSICAL EXAMINATION: VITAL SIGNS: Please see below. GENERAL: Pt laying on bed. Not in acte distress, alert and awake HEENT: Normocephalic, atraumatic, NG tube in place with mild amount of clear fluid in place NECK: Supple CARDIOVASCULAR EXAMINATION: S1, S2, no murmurs RESPIRATORY EXAMINATION: Clear to auscultation b/l, no wheezing, rhonchi, rales. ABDOMINAL EXAMINATION: Soft, nondistended, no obvious/hypoactive bowel sounds aus. No guarding or distention. Leighann noted covering healing scars in ventral abdomen SKIN: No obvious rash NEUROLOGICAL EXAMINATION: Alert and oriented 3, no focal neurological deficits or memory deficits PSYCHIATRIC EXAMINATION: Mood stable and appropriate to situation. Cooperative ASSESSMENT AND PLAN: 54 yo male admitted for small and large bowel obstruction, found to have an obstructing lesion in the colon s/p colonoscopy and s/p extensive right colectomy with reanastomosis. PROBLEMS: 1. Small/large bowel obstruction 2/2 transverse colon mass: Secondary to obstructing lesion likely malignant in the transverse colon seen via colonoscopy, pathology from colonoscopy showed high-grade dysplasia suspicious for invasive adenocarcinoma. Right hemicolectomy pathology pending. POD2. NG tube in place without N/V. On PPN. Pt still not passing gas or having BM. Advance to clear diet and clamp NG tube once pt started passing gas DVT prophylaxis: Lovenox. GI prophylaxis: PPI Attending attestation: I evaluated and examined the patient in person; I discussed the care with Resident in detail and agree with the plan above. VS, I&O, 24H, Fishbone Vital Signs/I&O Vital Signs Date Time Temp Pulse Resp B/P (MAP) Pulse Ox O2 Delivery O2 Flow Rate FiO2 03/25/20 09:40 18 03/25/20 06:00 97.9 85 124/78 (93) 94 Room Air 03/24/20 06:00 2.0 I&O- Last 24 Hours up to 6 AM 03/25/20 06:00 Intake Total 4260 ml Output Total 3570 ml Balance 690 ml Laboratory Data 24H LABS Laboratory Tests 2 03/24/20 11:51: Bedside Glucose (Misc Panel) 117H 03/24/20 17:47: Bedside Glucose (Misc Panel) 104 03/25/20 00:07: Bedside Glucose (Misc Panel) 102 03/25/20 06:45: Nucleated Red Blood Cells % (auto) 0.0, Anion Gap 6L, Glomerular Filtration Rate > 60.0, Calcium Level 7.9L CBC/BMP Laboratory Tests 03/25/20 06:45 Microbiology Microbiology 03/19/20 Coronavirus COVID-19 PCR ([facility]IT) - Final, Complete GME ATTESTATION GME ATTESTATION My faculty preceptor for this patient encounter was physically present during the encounter and was fully available. All aspects of the patient interview, e xamination, medical decision making process, and medical care plan development were reviewed and approved by the faculty preceptor. The faculty preceptor is aware and concurs with the plan as stated in the body of this note and will attest to such by his/her cosignature. DEUCE MOTLEY DO Mar 25, 2020 11:00 CHINTAN GIBSON MD Mar 30, 2020 08:21
[2020-03-25] MEDS: NS 1,000 ML IV SCH (13:39)
[2020-03-25 14:00] VITALS: BP 121/76
[2020-03-25] MEDS ORDERED: FAT EMULSION IV 20% 500 ML IV SCH (18:00)
[2020-03-25 22:00] VITALS: BP 124/79
[2020-03-26] MEDS: NORCO, ANEXSIA 5/325MG TABLET (HYDROcodone/ACETAMINOPHEN) PO PRN ×2 (03:09→10:12)
[2020-03-26] MEDS: PIPERACILLIN/TAZOBACTAM SOD 3.375 GM in D5W MINI-BAG PLUS 50 ML IV SCH (03:09)
[2020-03-26 06:00] VITALS: BP 145/85
[2020-03-26] MEDS: HumaLOG INSULIN (NovoLOG) PER UNIT SC SCH ×4 (06:00→17:54)
[2020-03-26 07:01] LABS: HEMOGLOBIN 12.9 g/dl (13.5-17.5); MEAN CORPUSCULAR HEMOGLOBIN 28.9 pg (27.0-33.0); MEAN CORPUSCULAR HGB CONC 32.3 g/dl (32.0-36.5); MEAN CORPUSCULAR VOLUME 89.5 fl (80.0-96.0); PLATELET COUNT, AUTOMATED 190 10^3/uL (150-450); RED BLOOD COUNT 4.47 10^6/uL (4.30-6.10); WHITE BLOOD COUNT 6.5 10^3/uL (4.0-10.0)
[2020-03-26 07:25] LABS: BLOOD UREA NITROGEN 10 MG/DL (7-18); CALCIUM LEVEL 8.1 MG/DL (8.5-10.1); CARBON DIOXIDE LEVEL 29 MEQ/L (21-32); CHLORIDE LEVEL 104 MEQ/L (98-107); CREATININE FOR GFR 0.95 MG/DL (0.70-1.30); GLOMERULAR FILTRATION RATE > 60.0 (>56); GLUCOSE, FASTING 97 MG/DL (70-100); POTASSIUM SERUM 4.2 MEQ/L (3.5-5.1); SODIUM LEVEL 139 MEQ/L (136-145)
[2020-03-26] MEDS: AMINO AC/ELECTROLYTE/DEX/CALC 1,000 ML IV SCH (08:09)
[2020-03-26] MEDS: PANTOPRAZOLE 40MG VIAL (C9113 PER 1) IV SCH (08:10)
[2020-03-26] MEDS: ENOXAPARIN 40MG/0.4ML SYRINGE (J1650 PER 10MG) SC SCH (08:10)
--- NOTE | 2020-03-26 08:26 | IPNPDOC ---
Text Note Date of Service The patient was seen on 03/26/20. NOTE No acute events overnight. He denies nausea, emesis, or fevers. His pain is co ntrolled, and he was able to make 10 laps in the adorno yesterday. He thinks that he passed a little gas. VSSAF NAD abd - soft, TTP appropriate, incisions c/d/i, drain in place with serosanguinous output labs - below A) 54y/o male s/p colonoscopy that shows transverse colon mass, path shows high grade dysplasia POD#3 s/p extended rt hemicolectomy P) clear diet clamp NGT d/c PPN d/c IVF d/c abx ambulate in halls IS await return of bowel function if tolerating NG clamped 12 hours then it can be removed. Anurag Soto DO VS,Idania, I+O VS, Idania, I+O Laboratory Tests 03/26/20 06:38 Vital Signs Date Time Temp Pulse Resp B/P (MAP) Pulse Ox O2 Delivery O2 Flow Rate FiO2 03/26/20 06:00 97.6 74 19 145/85 (105) 97 Room Air 03/24/20 06:00 2.0 I&O- Last 24 Hours up to 6 AM 03/26/20 06:00 Intake Total 220 ml Output Total 3190 ml Balance -2970 ml CONCETTA SOTO DO Mar 26, 2020 08:26
[2020-03-26] MEDS: KETOROLAC 30 MG/ML 1ML VIAL IV PRN ×2 (12:56→20:51)
[2020-03-26 14:00] VITALS: BP 130/80
--- NOTE | 2020-03-26 17:29 | IPNPDOC ---
Date Seen The patient was seen on 03/26/20. Progress Note SUBJECTIVE: 54-year-old white male admitted for SBO and LBO, underwent colonoscopy which showed an obstructing colonic mass with pathology pending. Patient underwent extended right hemicolectomy with reanastomosis on 03/23/2020 evening. Pt passed one gas yesterday with BM. He was advanced to clear diet and has been drinking some soup. NG tube was clamped. He denies any fever, chills, nausea, or vomiting. Pt reported abd pain at the surgical incision site which has been stable. Pt reported he has been walking and denies any leg pain/swelling, reported no symptom other than above 10 point review of system is negative except for above PHYSICAL EXAMINATION: VITAL SIGNS: Please see below. GENERAL: Pt laying on bed. Not in acte distress, alert and awake HEENT: Normocephalic, atraumatic, mucosa moist and pink. NECK: Supple CARDIOVASCULAR EXAMINATION: S1, S2, no murmurs RESPIRATORY EXAMINATION: Clear to auscultation b/l, no wheezing, rhonchi, rales. ABDOMINAL EXAMINATION: Soft, nondistended, no obvious/hypoactive bowel sounds aus. No guarding or distention. Healing ventral abdominal incisions SKIN: No obvious rash NEUROLOGICAL EXAMINATION: Alert and oriented 3, no focal neurological deficits or memory deficits EXTREMITIES: neg bc's sign b/l PSYCHIATRIC EXAMINATION: Mood stable and appropriate to situation. Cooperative ASSESSMENT AND PLAN: 54 yo male admitted for small and large bowel obstruction, found to have an obstructing lesion in the colon s/p colonoscopy and s/p ex tensive right colectomy with reanastomosis advanced to clear liquid diet after passing gas. PROBLEMS: 1. Small/large bowel obstruction 2/2 adenocarcinoma s/p resection. Secondary to obstructing lesion likely malignant in the transverse colon seen via colonoscopy, pathology from colonoscopy showed high-grade dysplasia suspicious for invasive adenocarcinoma. Right hemicolectomy pathology moderately differentiated colonic adenocarcinoma. POD3. On clear liquid diet after passing gas. No BM yet. 2. Adenocarcinoma, right colon. Right hemicolectomy pathology moderately differentiated colonic adenocarcinoma. Follow up outpt once ileus resolves 3. Ileus. POD3. Pt passed gas yesterday was advanced to clear liquid diet. No BM yet. Denies N/V. PPN and IVF d/c. DVT prophylaxis: Lovenox. GI prophylaxis: PPI Attending attestation: I evaluated and examined the patient in person; I discussed the care with Resident in detail and agree with the plan above. VS, I&O, 24H, Fishbone Vital Signs/I&O Vital Signs Date Time Temp Pulse Resp B/P (MAP) Pulse Ox O2 Delivery O2 Flow Rate FiO2 03/26/20 14:00 97.5 80 18 130/80 (97) 98 Room Air 03/24/20 06:00 2.0 I&O- Last 24 Hours up to 6 AM 03/26/20 06:00 Intake Total 220 ml Output Total 3190 ml Balance -2970 ml Laboratory Data 24H LABS Laboratory Tests 2 03/26/20 00:15: Bedside Glucose (Misc Panel) 102 03/26/20 05:18: Bedside Glucose (Misc Panel) 98 03/26/20 06:38: Nucleated Red Blood Cells % (auto) 0.0, Anion Gap 6L, Glomerular Filtration Rate > 60.0, Calcium Level 8.1L 03/26/20 12:05: Bedside Glucose (Misc Panel) 89 CBC/BMP Laboratory Tests 03/26/20 06:38 Microbiology Microbiology 03/19/20 Coronavirus COVID-19 PCR ([facility]IT) - Final, Complete GME ATTESTATION GME ATTESTATION My faculty preceptor for this patient encounter was physically present during the encounter and was fully available. All aspects of the patient interview, examination, medical decision making process, and medical care plan development were reviewed and approved by the faculty preceptor. The faculty preceptor is aware and concurs with the plan as stated in the body of this note and will attest to such by his/her cosignature. DEUCE MOTLEY DO Mar 26, 2020 17:29 CHINTAN GIBSON MD Mar 30, 2020 08:23
[2020-03-26 22:00] VITALS: BP 154/84
[2020-03-27] MEDS: HumaLOG INSULIN (NovoLOG) PER UNIT SC SCH ×4 (05:48→18:00)
[2020-03-27 06:00] VITALS: BP 143/83
[2020-03-27] MEDS: KETOROLAC 30 MG/ML 1ML VIAL IV PRN ×2 (06:32→20:25)
[2020-03-27 07:04] LABS: HEMATOCRIT 40.9 % (42.0-52.0); HEMOGLOBIN 13.2 g/dl (13.5-17.5); MEAN CORPUSCULAR HEMOGLOBIN 28.7 pg (27.0-33.0); MEAN CORPUSCULAR HGB CONC 32.3 g/dl (32.0-36.5); MEAN CORPUSCULAR VOLUME 88.9 fl (80.0-96.0); PLATELET COUNT, AUTOMATED 225 10^3/uL (150-450); WHITE BLOOD COUNT 6.3 10^3/uL (4.0-10.0)
[2020-03-27 07:31] LABS: BLOOD UREA NITROGEN 11 MG/DL (7-18); CALCIUM LEVEL 8.4 MG/DL (8.5-10.1); CARBON DIOXIDE LEVEL 29 MEQ/L (21-32); CHLORIDE LEVEL 106 MEQ/L (98-107); CREATININE FOR GFR 0.83 MG/DL (0.70-1.30); GLOMERULAR FILTRATION RATE > 60.0 (>56); GLUCOSE, FASTING 91 MG/DL (70-100); POTASSIUM SERUM 4.3 MEQ/L (3.5-5.1); SODIUM LEVEL 139 MEQ/L (136-145)
[2020-03-27] MEDS: PANTOPRAZOLE 40MG VIAL (C9113 PER 1) IV SCH (08:47)
[2020-03-27] MEDS: ENOXAPARIN 40MG/0.4ML SYRINGE (J1650 PER 10MG) SC SCH (08:47)
[2020-03-27] MEDS: NORCO, ANEXSIA 5/325MG TABLET (HYDROcodone/ACETAMINOPHEN) PO PRN ×2 (10:15→18:20)
--- NOTE | 2020-03-27 14:20 | IPNPDOC ---
Date Seen The patient was seen on 03/27/20. Progress Note SUBJECTIVE: 54-year-old white male admitted for SBO and LBO, underwent colonoscopy which showed an obstructing colonic mass with pathology pending. Patient underwent extended right hemicolectomy with reanastomosis on 03/23/2020 evening. Pt reported frequent BM, reported 7 of them. Pt was advanced to regular diet, and he said he ate 2 slices of toast with eggs. NG tube was clamped. He denies any fever, chills, nausea, or vomiting. Reported abd pain at the surgical incision site which has been stable. Pt reported he has been walking and denies any leg pain/swelling, reported no symptom other than above 10 point review of system is negative except for above PHYSICAL EXAMINATION: VITAL SIGNS: Please see below. GENERAL: Pt laying on bed. Not in acte distress, alert and awake HEENT: Normocephalic, atraumatic, mucosa moist and pink. NECK: Supple CARDIOVASCULAR EXAMINATION: S1, S2, no murmurs RESPIRATORY EXAMINATION: Clear to auscultation b/l, no wheezing, rhonchi, rales. ABDOMINAL EXAMINATION: Soft, nondistended, bowel sound aus in all 4 quadrants. No guarding or distention. Healing ventral abdominal incisions without obvious signs of infection SKIN: No obvious rash NEUROLOGICAL EXAMINATION: Alert and oriented 3, no focal neurological deficits or memory deficits EXTREMITIES: neg bc's sign b/l PSYCHIATRIC EXAMINATION: Mood stable and appropriate to situation. Cooperative ASSESSMENT AND PLAN: 54 yo male admitted for small and large bowel obstruction, found to have an obstructing lesion in the colon s/p colonoscopy and s/p extensive right colectomy with reanastomosis advanced to regular diet; had BM PROBLEMS: 1. Small/large bowel obstruction 2/2 adenocarcinoma s/p resection. Secondary to obstructing lesion likely malignant in the transverse colon seen via colonoscop y, pathology from colonoscopy showed high-grade dysplasia suspicious for invasive adenocarcinoma. Right hemicolectomy pathology moderately differentiated colonic adenocarcinoma. POD4. Pt had BM already, on regular diet. PT HSE ordered 2. Adenocarcinoma, right colon. Right hemicolectomy pathology moderately differentiated colonic adenocarcinoma. Follow up outpt, ileus resolved 3. Ileus, resolved. POD4. Pt had BM and was advanced to regular diet. S/P PPN and IVF DVT prophylaxis: Lovenox. GI prophylaxis: PPI DISPO: small/large bowel obstruction 2/2 adenocarcinoma s/p resection POD4, on regular diet, anticipate dc tmrw VS, I&O, 24H, Fishbone Vital Signs/I&O Vital Signs Date Time Temp Pulse Resp B/P (MAP) Pulse Ox O2 Delivery O2 Flow Rate FiO2 03/27/20 10:45 16 03/27/20 06:00 98.9 81 143/83 (103) 96 Room Air 03/24/20 06:00 2.0 I&O- Last 24 Hours up to 6 AM 03/27/20 06:00 Intake Total 120 ml Output Total 1850 ml Balance -1730 ml Laboratory Data 24H LABS Laboratory Tests 2 03/26/20 17:44: Bedside Glucose (Misc Panel) 69L 03/27/20 00:09: Bedside Glucose (Misc Panel) 91 03/27/20 05:39: Bedside Glucose (Misc Panel) 95 03/27/20 06:38: Nucleated Red Blood Cells % (auto) 0.0, Anion Gap 4L, Glomerular Filtration Rate > 60.0, Calcium Level 8.4L 03/27/20 12:12: Bedside Glucose (Misc Panel) 130H CBC/BMP Laboratory Tests 03/27/20 06:38 Microbiology Microbiology 03/19/20 Coronavirus COVID-19 PCR ([facility]IT) - Final, Complete GME ATTESTATION GME ATTESTATION My faculty preceptor for this patient encounter was physically present during the encounter and was fully available. All aspects of the patient interview, examination, medical decision making process, and medical care plan development were reviewed and approved by the faculty preceptor. The faculty preceptor is aware and concurs with the plan as stated in the body of this note and will attest to such by his/her cosignature. DEUCE MOTLEY DO Mar 27, 2020 14:20
[2020-03-27 15:23] VITALS: BP 126/80
[2020-03-27 22:00] VITALS: BP 123/81
[2020-03-28 06:00] VITALS: BP 112/75
[2020-03-28 07:07] LABS: HEMATOCRIT 40.6 % (42.0-52.0); HEMOGLOBIN 13.1 g/dl (13.5-17.5); MEAN CORPUSCULAR HGB CONC 32.3 g/dl (32.0-36.5); PLATELET COUNT, AUTOMATED 228 10^3/uL (150-450); RED BLOOD COUNT 4.51 10^6/uL (4.30-6.10); WHITE BLOOD COUNT 7.2 10^3/uL (4.0-10.0)
[2020-03-28] MEDS: ENOXAPARIN 40MG/0.4ML SYRINGE (J1650 PER 10MG) SC SCH (08:39)
[2020-03-28] MEDS: NORCO, ANEXSIA 5/325MG TABLET (HYDROcodone/ACETAMINOPHEN) PO PRN ×2 (08:48→12:58)
[2020-03-28] MEDS ORDERED: PANTOPRAZOLE 40MG TAB (PROTONIX) PO SCH (09:00)
[2020-03-28] MEDS ORDERED: PERC10TA26 PO (11:38)
[2020-03-28] MEDS ORDERED: OMEP40CA97 PO (11:41)
[2020-03-28] MEDS ORDERED: ONDA4TAB6 PO (11:43)
[2020-03-28 14:00] VITALS: BP 158/86
--- NOTE | 2020-03-28 14:38 | DS.PDOC ---
Discharge Summary General Date of Admission March 18, 2020 at 09:29 Date of Discharge 03/28/2020 Discharge Summary PROCEDURES PERFORMED DURING STAY: 1. Colonoscopy 03/20/2020 2. Right extensive hemicolectomy 03/24/2020 ADMITTING DIAGNOSES: 1.Proximal transverse colon bowel obstruction with dilation of small and large bowel proximally DISCHARGE DIAGNOSES: 1. Small/large bowel obstruction 2/2 adenocarcinoma s/p resection, resolved 2. Adenocarcinoma, right colon 3. Ileus, resolved COMPLICATIONS/CHIEF COMPLAINT: Bowel Obstruction. HISTORY OF PRESENT ILLNESS: : Pt is 54 yo white male presented to [facility] ER due to sharp, diffuse abdominal pain, nausea and vomiting. Intermittent episodes of sharp stabbing abdominal pains 10/10 first started 3 months ago, lasting for seconds and resolved, and becoming more frequent and longer lasting over time. Pt was seen at ER one week ago because of the abd pain as well, pt was discharged home for outpt colonoscopy. However, prior to him getting that colonoscopy referral completed the pains came back again and that is what brought him back to ER. HOSPITAL COURSE: Pt was found to have bowel obstruction on CT abd/pelvis along the complete obstruction from the proximal transverse colon with small and large bowel dilatation proximal and was subsequently admitted for bowel obstruction with NGT placement and placed on NPO. He underwent colonoscopy which showed an obstructing mass. He underwent extensive right hemicolectomy and was started on PPN before the ileus resolved. Pt was having BM and was tolerating PO regular diet well. Denies any fever, chills, N/V, or blood in stool; reporting only symptom is abdominal pain where the incisions are at which had stablized after the surgery. Pt was determined ready to be discharged home today. DISCHARGE MEDICATIONS: Please see below. ALLERGIES: Please see below. PHYSICAL EXAMINATION ON DISCHARGE: VITAL SIGNS: Please see below. GENERAL: Not in acte distress, alert and awake, pleasant and cooperative, on the phone with friend initially HEENT: Normocephalic, atraumatic, mucosa moist and pink. NECK: Supple CARDIOVASCULAR EXAMINATION: S1, S2, no murmurs RESPIRATORY EXAMINATION: Clear to auscultation b/l, no wheezing, rhonchi, rales. ABDOMINAL EXAMINATION: Soft, nondistended, bowel sound aus in all 4 quadrants. No guarding or distention. Healing ventral abdominal incisions without obvious signs of infection SKIN: No obvious rash, good skin turgor and temp NEUROLOGICAL EXAMINATION: Alert and oriented 3, no focal neurological deficits or memory deficits EXTREMITIES: no obvious swelling/edema, moving all 4 extremities spontaneously PSYCHIATRIC EXAMINATION: Mildly sad, appropriate to situation LABORATORY DATA: Please see below. IMAGING: CT abd/pelvis along the complete obstruction from the proximal t ransverse colon with small and large bowel dilatation proximal PROGNOSIS: Fair to poor ACTIVITY: [As tolerated]. DIET: [As tolerated] DISCHARGE PLAN AND INSTRUCTIONS: 1. Follow up with PCP in a week 2. Establish care with oncology ITEMS TO FOLLOWUP ON ON OUTPATIENT: 1. Adenocarcinoma of right colon DISCHARGE CONDITION: [Improved]. TIME SPENT ON DISCHARGE: Greater than [37] minutes. Vital Signs/I&Os Vital Signs Date Time Temp Pulse Resp B/P (MAP) Pulse Ox O2 Delivery O2 Flow Rate FiO2 03/28/20 13:28 16 03/28/20 06:00 99.1 85 112/75 (87) 96 Room Air 03/24/20 06:00 2.0 I&O- Last 24 Hours up to 6 AM 03/28/20 06:00 Intake Total 2510 ml Output Total 110 ml Balance 2400 ml Laboratory Data Labs 24H Laboratory Tests 2 03/27/20 18:13: Bedside Glucose (Misc Panel) 94 03/28/20 06:49: Nucleated Red Blood Cells % (auto) 0.0 CBC/BMP Laboratory Tests 03/28/20 06:49 FSBS Laboratory Tests Test 03/27/20 18:13 Range/Units Bedside Glucose (Misc Panel) 94 70-105 MG/DL Microbiology Microbiology 03/19/20 Coronavirus COVID-19 PCR (DALJIT) - Final, Complete Discharge Medications Scheduled Omeprazole (Omeprazole) 40 Mg Capsule.dr, 1 CAP PO DAILY Scheduled PRN Ondansetron (Ondansetron Odt) 4 Mg Tab.rapdis, 4 MG PO Q6H PRN for NAUSEA OR VOMITING Oxycodone HCl/Acetaminophen (Percocet 10-325 mg Tablet) 1 Each Tablet, 1 TAB PO QIDP PRN for ABDOMINAL PAIN Allergies Coded Allergies: No Known Allergies (Unverified , 03/29/17) DEUCE MOTLEY DO Mar 28, 2020 14:38
--- NOTE | 2020-03-29 08:58 | RO ---
DATE OF PROCEDURE: 03/23/2020 PREOPERATIVE DIAGNOSIS: Transverse colon mass. POSTOPERATIVE DIAGNOSIS: Transverse colon mass. PROCEDURE: Robotic-assisted extended right hemicolectomy converted to open/ SURGEON: Dr. Soto SERVICE TRAINER: Dr. Walter (who assisted with mobilization, retraction, and resection of bowel as was well as the anastomosis). ANESTHESIA: General. ESTIMATED BLOOD LOSS (EBL): 200. COMPLICATIONS: None. INDICATIONS FOR PROCEDURE: Patient is a 54-year-old male with a history of recent abdominal pain found to have a bowel obstruction on CT. Colonoscopy was completed on Monday, which confirmed the diagnosis of a mass in the transverse colon. Recommendation was to proceed with robotic repair. Risks and benefits of procedure not limited to but including bleeding, infection, hernia formation, anastomotic leak, damage to surrounding structure, need for further surgery were discussed in detail with the patient. Informed was obtained and procedure planned. DESCRIPTION OF PROCEDURE: The patient was brought back to operating room #7. After sufficient sedation, the abdomen was sterilely prepped and draped in the usual sterile manner. Next, a time-out was done to confirm proper patient and proper procedure. Next, an 8 mm incision was made in left lower quadrant. Veress needle inserted and the abdomen was insufflated to 50 mmHg. Veress needle was then removed. Optiview port used to gain access to the abdomen. Once the abdomen was entered, a 12 mm port was placed next to it and two more 8 mm ports, one just left to the umbilicus and one to the right lower quadrant. The robot was then docked to the ports. Next, from the console the omentum was gently elevated superiorly revealing the mass just inferior to the gallbladder in the proximal transverse colon. The omentum was then transected around the middle of the transverse colon. The colon was then held inferiorly and the gastrocolic ligament was dissected and then the dissection was continued around the transverse colon at the hepatic flexure. Due to the distension of the transverse the colon, I was unable to complete the dissection laterally heading down the lateral right pericolic gutter. Because of that I decided to open. Next, a midline incision was made. Bookwalter retractor was placed. Then starting from the terminal ileum, the terminal ileum was dissected free from adhesions down the pelvis brought up towards the center. The terminal ileum was then transected using a JOSUE 100 stapler with a blue load. The transverse colon was also then transected just distal to the strictured area using the same stapler. Once that was completed, dissection was carried out from the cecum proximally around. The peritoneal reflection was dissected free. Continued the dissection up laterally all way around the hepatic flexure until I met the end of colon superiorly. The mesocolon was then dissected free using Enseal. The right colic artery was identified. It was dissected free circumferentially and then I clamped it off with a Pooja and transected it with the Enseal and then used an #0 suture to ligate it as well. Once that was completed, the mass was removed. The two ends were then brought back together Two small colotomies were then created and a jshq-gq-cija anastomosis was done with a JOSUE 100 blue load stapler. The two holes in the end of bowel were then also transected with the JOSUE 100 stapler completing the anastomosis. A couple of interrupted Lembert sutures were placed around the proximal anastomosis point and then Tisseel was placed overtop of the anastomosis. The abdomen was irrigated with a couple liters of warm saline. A 19-Malay Jose F drain was then placed. Next, the anastomosis was brought out through the right side of the 12 mm port site. The abdomen was then closed with a #1 loop PDS times two, followed by skin robert. The abdomen cleaned and dried, 4 x 4 and tape were applied, thus ending procedure. GENARO
--- NOTE | 2020-03-30 10:02 | IPNPDOC ---
Text Note Date of Service The patient was seen on 03/27/20. NOTE No acute events overnight. He denies nausea, emesis, or fevers. His pain is controlled, and he is having BMs. VSSAF NAD abd - soft, TTP appropriate, incisions c/d/i, drain in place with serosanguinous output labs - below A) 54y/o male s/p colonoscopy that shows transverse colon mass, path shows high grade dysplasia POD#4 s/p extended rt hemicolectomy P) reg diet ambulate in halls IS plan on d/c home tomorrow AM as long as he is tolerating the reg diet. Anurag Soto DO VS,Fishbone, I+O VS, Fishbone, I+O Vital Signs Date Time Temp Pulse Resp B/P (MAP) Pulse Ox O2 Delivery O2 Flow Rate FiO2 03/28/20 14:00 98.4 80 18 158/86 (110) 97 Room Air 03/24/20 06:00 2.0 CONCETTA SOTO DO Mar 30, 2020 10:02
== END 2020-03-28 14:50 | disposition home or self-care (01) | DRG 330 ==
LOC: M ED 04:38 → M ED INP 09:29 → M MS5PR 11:10
PROVIDERS: ADMIT Internal Medicine; ATTEND Internal Medicine
PROC: 0DBL8ZX Excision of Transverse Colon, Via Natural or Artificial Opening Endoscopic, Diagnostic (ICD-10-PCS; 2020-03-20)
PROC: 0DBB0ZZ Excision of Ileum, Open Approach (ICD-10-PCS; 2020-03-23)
PROC: 0DBF0ZZ Excision of Right Large Intestine, Open Approach (ICD-10-PCS; principal; 2020-03-23 16:00)
DX: C18.4 Malignant neoplasm of transverse colon (principal); K56.7 Ileus, unspecified; K58.0 Irritable bowel syndrome with diarrhea; R06.02 Shortness of breath; Z87.891 Personal history of nicotine dependence; K57.30 Diverticulosis of large intestine without perforation or abscess without bleeding; Z90.49 Acquired absence of other specified parts of digestive tract; Z53.31 Laparoscopic surgical procedure converted to open procedure; Z11.59 Encounter for screening for other viral diseases

== ENCOUNTER 2020-03-30 17:11 | Observation (INO) | payer OTHER ==
[~2020-03-30] VITALS: Ht 180.3 cm; Wt 112.5 kg
[~2020-03-30 17:11] MED LIST changes: +OMEP40CA97 PO; +PERC10TA26 PO; +PRED10TA2 PO
[2020-03-30] MEDS ORDERED: NS 1,000 ML IV ONE (17:45)
[2020-03-30 18:38] LABS: BASO % 0.1 % (0.0-1.0); EOS # 0.1 10^3/uL (0.0-0.5); EOS % 0.6 % (0.0-3.0); HEMATOCRIT 39.9 % (42.0-52.0); HEMOGLOBIN 13.1 g/dl (13.5-17.5); LYMPH # 0.8 10^3/uL (1.5-5.0); MEAN CORPUSCULAR HEMOGLOBIN 29.4 pg (27.0-33.0); MEAN CORPUSCULAR HGB CONC 32.8 g/dl (32.0-36.5); MEAN CORPUSCULAR VOLUME 89.7 fl (80.0-96.0); MONO # 1.1 10^3/uL (0.0-0.8); MONO % 7.1 % (0.0-5.0); NEUTROPHILS # 12.9 10^3/uL (1.5-8.5); NEUTROPHILS % 86.4 % (36.0-66.0); PLATELET COUNT, AUTOMATED 266 10^3/uL (150-450); RED BLOOD COUNT 4.45 10^6/uL (4.30-6.10); WHITE BLOOD COUNT 14.9 10^3/uL (4.0-10.0)
[2020-03-30] MEDS ORDERED: PIPERACILLIN/TAZOBACTAM SOD 3.375 GM in D5W MINI-BAG PLUS 50 ML IV ONE (18:45)
[2020-03-30] MEDS ORDERED: ISOVUE-370 76% 100ML VIAL As Ordered ONE (18:47)
[2020-03-30 18:53] LABS: INR 1.11
[2020-03-30 18:54] LABS: PARTIAL THROMBOPLASTIN TIME 30.7 SECONDS (25.0-38.4)
[2020-03-30 19:04] LABS: ALBUMIN 2.4 GM/DL (3.2-5.2); BILIRUBIN,DIRECT 0.2 MG/DL (0.0-0.2); BILIRUBIN,TOTAL 0.7 MG/DL (0.2-1.0)
--- NOTE | 2020-03-30 19:27 | REPVR ---
PROCEDURE INFORMATION: Exam: CT Abdomen And Pelvis With Contrast Exam date and time: 03/30/2020 6:51 PM Age: 54 years old Clinical indication: Abdominal pain; Periumbilical; Prior surgery; Surgery date: 3-7 days post-operative; Surgery type: Colon resection; Additional info: Post op infection TECHNIQUE: Imaging protocol: Computed tomography of the abdomen and pelvis with intravenous contrast. Radiation optimization: All CT scans at this facility use at least one of these dose optimization techniques: automated exposure control; mA and/or kV adjustment per patient size (includes targeted exams where dose is matched to clinical indication); or iterative reconstruction. Contrast material: ISOVUE 370; Contrast volume: 100 ml; Contrast route: IV; COMPARISON: CT ABD/PEL W/IV ORAL CONTRAS 03/18/2020 8:00 AM FINDINGS: Lungs: The imaged portions of the lung bases are clear. The lungs were not fully imaged. Heart: No cardiomegaly or pericardial effusion. Diaphragm: Intact. Liver: Unremarkable. No liver lesion is identified. The contour of the liver is smooth. No hepatomegaly is noted. Gallbladder and bile ducts: No calcified gallstones are noted. No gallbladder wall thickening, pericholecystic fluid, or pericholecystic inflammatory changes are identified. No dilation of the bile ducts is noted. No calcified stones are seen in the common bile duct. Pancreas: Normal. No dilation of the main pancreatic duct is noted. There is no inflammatory fat stranding around the pancreas to suggest acute pancreatitis. Spleen: Normal. No splenomegaly is noted. Incidental note is made of two small accessory spleens. Adrenals: Normal. No adrenal mass is noted. Kidneys and ureters: There is a 2.2 cm simple cyst arising from the posterior aspect of the midpole of the right kidney, which is unchanged compared to the prior CT on 03/18/2020 and for which follow-up is not necessary. The left kidney is normal in appearance. No stones are noted in the kidneys or ureters. There is no hydronephrosis or hydroureter. There are no wedge-shaped areas of low attenuation in the kidneys to suggest pyelonephritis. There is no renal abscess or perinephric fluid collection. Stomach and bowel: The stomach is unremarkable. Postoperative changes are noted from a right hemicolectomy and ileocolonic anastomosis, which has been performed since the prior CT on 03/18/2020. There is postoperative edema in the mesentery around the anastomotic site. No anastomotic leak is noted. There is a moderate amount of formed stool in the remaining portion of the transverse colon just distal to the anastomotic site and a mild amount of formed stool in the descending colon and rectosigmoid. No bowel obstruction, pneumatosis intestinalis, bowel wall thickening, diverticulosis, diverticulitis, intussusception, or volvulus is noted. Appendix: The appendix has been removed. Intraperitoneal space: No free air. No ascites. No asbcess. Retroperitoneal space: No fluid collection. No mass. Vasculature: The abdominal aorta is patent, normal in caliber, and there is no dissection. The iliac arteries, common femoral arteries, renal arteries, celiac artery, superior mesenteric artery, and inferior mesenteric artery are patent. The portal veins, splenic vein, superior mesenteric vein, inferior mesenteric vein, and renal veins are patent. Lymph nodes: No enlarged lymph nodes. Bladder: There is a small focus of gas in the right anterior aspect of the distended bladder, which should be correlated with recent instrumentation. No stones or masses are noted in the bladder. There is no bladder wall thickening. Reproductive: The prostate gland is enlarged and measures 5.2 cm x 3.8 cm x 4.5 cm and the volume of the prostate gland measures 46.6 mL. The seminal vesicles are unremarkable. Bones/joints: There is no fracture or dislocation. No suspicious osteolytic or osteoblastic lesion. There are mild degenerative changes in the lumbar spine and both hip joints. Soft tissues: There is a midline vertical incision scar in the anterior abdominal wall with edema and foci of gas in the subcutaneous tissues, overlying skin thickening, and overlying skin robert. No drainable soft tissue fluid collection is noted. Other findings: There is postoperative edema in the preperitoneal space. IMPRESSION: 1. Postoperative changes from a right hemicolectomy and ileocolonic anastomosis that has been performed since the prior CT abdomen and pelvis on 03/18/2020. No anastomotic leak, perforated viscus, bowel obstruction, or abscess. 2. Foci of gas and edema in the subcutaneous tissues in the anterior abdominal wall with overlying skin thickening, which may be postoperative in nature or represent cellulitis. 3. Small focus of gas in the right anterior aspect of the urinary bladder, which should be correlated with recent instrumentation. 4. Enlarged prostate. Electronically signed by: Justin Chandra On 03/30/2020 19:26:46 PM
[2020-03-30] MEDS ORDERED: PERCOCET 5MG/325MG TAB PO ONE (19:30)
[2020-03-30] MEDS ORDERED: PERC10TA26 PO (19:57)
[2020-03-30] MEDS ORDERED: OMEP40CA97 PO (19:57)
[2020-03-30] MEDS ORDERED: ONDA4TAB6 PO (19:57)
[2020-03-30 20:17] VITALS: BP 146/77
[2020-03-30] MEDS ORDERED: KETOROLAC 30 MG/ML 1ML VIAL IV PRN (21:30)
[2020-03-30] MEDS ORDERED: NORCO, ANEXSIA 5/325MG TABLET (HYDROcodone/ACETAMINOPHEN) PO PRN (21:30)
[2020-03-30] MEDS ORDERED: ACETAMINOPHEN TAB 650MG DOSE (2X325MG) PO PRN (21:30)
[2020-03-30] MEDS ORDERED: ONDANSETRON 4 MG ORAL DISINTEGRATING TAB PO PRN (21:30)
[2020-03-31] MEDS: PIPERACILLIN/TAZOBACTAM SOD 3.375 GM in D5W MINI-BAG PLUS 50 ML IV SCH ×2 (01:42→06:39)
[2020-03-31 06:41] VITALS: BP_DIAS 64
[2020-03-31] MEDS ORDERED: ENOXAPARIN 40MG/0.4ML SYRINGE (J1650 PER 10MG) SC SCH (09:00)
[2020-03-31] MEDS ORDERED: SENOKOT S TAB PO SCH (09:00)
[2020-03-31] MEDS ORDERED: OMEPRAZOLE 20 MG CAP PO SCH (09:00)
[2020-03-31] MEDS ORDERED: BACT800T5 PO (10:50)
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
== END 2020-03-31 13:10 | disposition home or self-care (01) ==
LOC: M ED 17:50 → M ED INP 17:51 → ENRESERV 19:32 → M MS5PR 20:10
PROVIDERS: ADMIT Surgery; ATTEND Surgery
DX: K91.872 Postprocedural seroma of a digestive system organ or structure following a digestive system procedure (principal); Z90.49 Acquired absence of other specified parts of digestive tract; C18.9 Malignant neoplasm of colon, unspecified; J45.909 Unspecified asthma, uncomplicated; Z79.899 Other long term (current) drug therapy
CPT/HCPCS: 74177; 80047; 80076; 83605; 85025; 85610; 85730; 87040; 87070; 87205; 96365; 96366; 96372; 99284; J1650; J2543; Q9967

== ENCOUNTER → 2020-04-22 | Outpatient (CLI) | payer OTHER ==
[~2020-04-22] MED LIST changes: +ACETAMINOPHEN 325 MG TAB As Ordered ONE; +BACT800T5 PO; +LIDOCAINE 1% MDV 20ML VIAL As Ordered ONE; +MIDAZOLAM INJ 2MG/2ML VIAL (J2250 PER 1MG) As Ordered ONE; +ceFAZolin 1GM VIAL (J0690 PER 500MG) As Ordered ONE; +diphenhydrAMINE 50MG/ML VIAL (J1200) As Ordered ONE; +fentaNYL 100 MCG/2 ML INJECTION (J3010) As Ordered ONE
--- NOTE | 2020-04-22 13:40 | IRHP ---
[facility] IR Pre-Procedure H & P General Date of Service: Apr 22, 2020 Procedure: Same Day Surgery Interval History and Physical I have seen the patient and reviewed last H & P performed within 30 days. There is no significant interval change. History of Present Illness Chief Complaint The patient is a 54-year-old male admitted with a reason for visit of Colon Ca. PRE-PROCEDURE DIAGNOSIS: Colon ca HEART: normal rate LUNGS: normal breathing at rest. ASA Classification ASA Classification: III-Severe systemic dis. Mallampati Score: II NPO: Yes Problems with prior sedation: No Plan moderate sedation Allergies Coded Allergies: No Known Allergies (Unverified , 03/29/17) Home Medications Discontinued Medications Omeprazole (Omeprazole), 40 MG PO DAILY, (Reported) Discontinued Reason: Pt states not taking Ondansetron (Ondansetron Odt), 4 MG PO Q6H PRN for NAUSEA OR VOMITING, (Reported) Discontinued Reason: Pt states not taking Oxycodone HCl/Acetaminophen (Percocet 10-325 mg Tablet), 1 TAB PO QIDP PRN for P AIN, (Reported) Discontinued Reason: Pt states not taking Sulfamethoxazole/Trimethoprim (Bactrim Ds Tablet), 1 TAB PO BID Discontinued Reason: Pt states not taking ATUL MAK MD Apr 22, 2020 13:40
--- NOTE | 2020-04-22 14:45 | POST-OPPD ---
Postoperative Procedure Note Date Of Procedure: Apr 22, 2020 Time Of Procedure: 14:44 PREOPERATIVE DIAGNOSIS:colon ca POSTOPERATIVE DIAGNOSIS: same FINDINGS: patent right IJ PROCEDURE: right sided port placed. ready to use. SURGEON: viviana ANESTHESIA: mod sed ESTIMATED BLOOD LOSS: < 5 ml COMPLICATIONS: none POSTOPERATIVE CONDITION: stable ATUL MAK MD Apr 22, 2020 14:45
[2020-04-22] MEDS: ACETAMINOPHEN TAB 650MG DOSE (2X325MG) PO ONE ×2 (16:27→17:21)
[2020-04-22 16:53] VITALS: BP 160/76
--- NOTE | 2020-04-27 12:50 | REP ---
IR Ultrasound and fluoroscopy-guided port placement. IR Ultrasound of the neck. IR Moderate sedation. Clinical information: Colon cancer. Physician: Dr. Richardson. Procedure: The patient was advised of the benefits, risks, and alternatives of the procedure and informed consent was obtained. A time-out was performed with verification of the patient's name, MRN, site of procedure and type of procedure to be performed. The patient was positioned in the supine position on the angiographic table. The site was prepped and draped in the usual sterile fashion. Moderate sedation was performed by the physician including the presence of an independent trained observer who assisted and monitored the patient's level of consciousness and physiologic status. Following the administration of fentanyl and Versed, the physician spent 30 minutes of continuous face to face time with the patient. Ultrasound of the neck reveals a patent and compressible right internal jugular vein. A dining room helper radiograph reveals no gross abnormality. The neck and anterior chest wall were anesthetized with lidocaine. The right internal jugular vein was accessed using a microintroducer needle under ultrasound guidance, via a lateral approach. An 018 wire was advanced into the superior vena cava, the needle was removed and a microsheath was placed. An Amplatz wire was then passed into the inferior vena cava. An incision at the internal jugular vein access site and anterior chest wall were made using a scalpel. An incision was made at the anterior chest wall. A small pocket was created using a combination of blunt and sharp dissection. A tunneling device was then used to pass the catheter from the pocket to the neck puncture site. An 8-Greenlandic Angio dynamics Smart power port was then positioned in the pocket. The catheter was then measured and cut. The introducer sheath was exchanged for a peel-away sheath. The catheter was passed through the peel-away sheath into the internal jugular vein and the peel-away sheath was removed. The port tip was positioned at the cavoatrial junction . The port was then accessed with a Chester needle. The port flushes and aspirates well. The puncture site in the neck was closed. The chest wall incision was then closed with 2-0 Vicryl and 4-0 Monocryl. Glue and Steri-Strips were applied. A sterile dressing was then applied. The patient tolerated the procedure well and was returned to the PRU in stable condition. Estimated blood loss: <5 ml. Complications: None. Conclusion: 1. Successful placement of an 8-Greenlandic Angio dynamics Smart power port via the right internal jugular vein. The port is ready for immediate use. 2. Patient to follow up in IR clinic in 2 weeks. Thank you for this referral. Electronically Signed by Corry Richardson MD 04/27/2020 12:50 P
== END ==
LOC: M IRPRO 13:16
PROVIDERS: ATTEND Radiology Diagnostic Radiology
DX: C18.9 Malignant neoplasm of colon, unspecified (principal)
CPT/HCPCS: 36561; 99152; 99153; C1769; C1788; C1894; J0690; J1200; J1642; J1644; J2250; J3010

== ENCOUNTER → 2020-06-30 | Outpatient (CLI) | payer OTHER ==
[~2020-06-30] MED LIST changes: -ACETAMINOPHEN 325 MG TAB As Ordered ONE; +ELIQ5TAB PO; -LIDOCAINE 1% MDV 20ML VIAL As Ordered ONE; -MIDAZOLAM INJ 2MG/2ML VIAL (J2250 PER 1MG) As Ordered ONE; +OMEP-218 PO; +PROC10TA4 PO; +ZOFR4TAB16 PO; -ceFAZolin 1GM VIAL (J0690 PER 500MG) As Ordered ONE; -diphenhydrAMINE 50MG/ML VIAL (J1200) As Ordered ONE; -fentaNYL 100 MCG/2 ML INJECTION (J3010) As Ordered ONE
--- NOTE | 2020-06-30 17:05 | REPVR ---
PROCEDURE INFORMATION: Exam: US Duplex Right Lower Extremity Veins, Limited Exam date and time: 06/30/2020 4:33 PM Age: 54 years old Clinical indication: Pain; Leg, lower; Right TECHNIQUE: Imaging protocol: Real-time Duplex ultrasound of the Right Lower Extremity with 2-D wong scale, color Doppler flow and spectral waveform analysis with image documentation. Limited exam was focused on the right lower extremity veins. COMPARISON: No relevant prior studies available. FINDINGS: There is venous return of the right common femoral vein, entire femoral vein through the thigh/SFV and the entire popliteal vein. Below the popliteal vein at the trifurcation there is hypoechoic thrombus partially filling the posterior tibial vein and peroneal vein. This is an area of acute thrombus with a small channel of venous return at the margin. The patient is having calf pain. IMPRESSION: The study is positive for acute deep venous thrombosis at the proximal posterior tibial vein and peroneal vein. Electronically signed by: David Yepez On 06/30/2020 17:04:19 PM
== END ==
LOC: M RAD 16:09
PROVIDERS: ATTEND Specialist
DX: M79.661 Pain in right lower leg (principal); C18.9 Malignant neoplasm of colon, unspecified; I82.441 Acute embolism and thrombosis of right tibial vein

== ENCOUNTER 2023-03-24 04:44 | Emergency (ER) | payer OTHER ==
[~2023-03-24 04:44] MED LIST changes: +ELIQ2.5T PO; +GLYCCAP PO; +MULT-90 PO; +MULTCAP PO; +OMEP-173 PO; -OMEP-218 PO; +OMEP40CA4 PO; -OMEP40CA97 PO; -PROC10TA4 PO; +PROC10TA5 PO
[2023-03-24 05:43] LABS: BASO % 0.3 % (0.0-1.0); EOS # 0.4 10^3/uL (0.0-0.5); EOS % 5.6 % (0.0-3.0); HEMATOCRIT 47.2 % (42.0-52.0); HEMOGLOBIN 15.3 g/dl (13.5-17.5); LYMPH # 1.7 10^3/uL (1.5-5.0); LYMPH % 24.5 % (24.0-44.0); MEAN CORPUSCULAR HEMOGLOBIN 29.7 pg (27.0-33.0); MEAN CORPUSCULAR HGB CONC 32.4 g/dl (32.0-36.5); MEAN CORPUSCULAR VOLUME 91.5 fl (80.0-96.0); MONO # 0.6 10^3/uL (0.0-0.8); MONO % 8.9 % (2.0-8.0); NEUTROPHILS # 4.2 10^3/uL (1.5-8.5); NEUTROPHILS % 60.1 % (36.0-66.0); PLATELET COUNT, AUTOMATED 169 10^3/uL (150-450); RED BLOOD COUNT 5.16 10^6/uL (4.30-6.10); WHITE BLOOD COUNT 6.9 10^3/uL (4.0-10.0)
[2023-03-24 06:04] LABS: CK-MB VALUE MASS < 1.0 NG/ML (<3.6)
[2023-03-24 06:06] LABS: ALBUMIN 3.6 G/DL (3.2-5.2); ALKALINE PHOSPHATASE 59 U/L (46-116); ALT/SGPT 31 U/L (7.0-40); AST/SGOT 21 U/L (<34); BILIRUBIN,DIRECT 0.2 MG/DL (<0.4); BILIRUBIN,TOTAL 0.7 MG/DL (0.3-1.2); BLOOD UREA NITROGEN 18 MG/DL (9-23); CALCIUM LEVEL 8.2 MG/DL (8.5-10.1); CARBON DIOXIDE LEVEL 30 MMOL/L (20-31); CHLORIDE LEVEL 109 MMOL/L (98-107); CREATININE FOR GFR 1.03 MG/DL (0.70-1.30); GLOMERULAR FILTRATION RATE > 60.0 (>56); GLUCOSE, FASTING 106 MG/DL (60-100); POTASSIUM SERUM 4.7 MMOL/L (3.5-5.1); SODIUM LEVEL 142 MMOL/L (136-145); TOTAL PROTEIN 6.2 G/DL (5.7-8.2)
[2023-03-24 06:12] LABS: CPK CREATINE PHOSPHOKINASE 169 U/L (46-171); MB/CK RELATIVE INDEX 0.59 (< OR =4)
[2023-03-24 07:31] LABS: CK-MB VALUE MASS 1.1 NG/ML (<3.6)
[2023-03-24 07:32] LABS: MB/CK RELATIVE INDEX 0.66 (< OR =4)
[2023-03-24 09:34] VITALS: BP 164/94
== END 2023-03-24 09:41 | disposition home or self-care (01) ==
LOC: M ED 04:44
DX: R07.89 Other chest pain (principal); E78.5 Hyperlipidemia, unspecified; Z79.01 Long term (current) use of anticoagulants; Z79.899 Other long term (current) drug therapy

== ENCOUNTER 2024-06-20 18:19 | Emergency (ER) | payer OTHER ==
[~2024-06-20] VITALS: Ht 180.3 cm; Wt 120.8 kg
[~2024-06-20 18:19] MED LIST changes: +ONDA-282 PO; -ONDA4TAB6 PO
[2024-06-20] MEDS: methocarbamoL 500 MG TAB PO ONE (19:39)
[2024-06-20] MEDS: KETOROLAC 60MG 2ML VIAL IM ONE (19:44)
[2024-06-20] MEDS ORDERED: HYDR-3713 PO (22:41)
[2024-06-20] MEDS ORDERED: METH-1164 PO (22:41)
[2024-06-20] MEDS: NORCO 5/325MG TABLET (HOME DOSE PACK) PO ONE (23:03)
[2024-06-20 23:13] VITALS: BP 136/70; TEMP 97.9; O2SAT 99
== END 2024-06-20 23:14 | disposition home or self-care (01) ==
LOC: M ED 18:19
DX: S32.611A Displaced avulsion fracture of right ischium, initial encounter for closed fracture (principal); Y92.9 Unspecified place or not applicable; Y93.9 Activity, unspecified; Y99.0 Civilian activity done for income or pay; Z85.038 Personal history of other malignant neoplasm of large intestine; Z79.1 Long term (current) use of non-steroidal anti-inflammatories (NSAID); Z79.810 Long term (current) use of selective estrogen receptor modulators (SERMs); Z79.899 Other long term (current) drug therapy
CPT/HCPCS: 73552; 76882; 96372; 99284; J1885

== ENCOUNTER → 2024-07-04 | Outpatient (CLI) | payer OTHER ==
[~2024-07-04] MED LIST changes: +HYDR-3713 PO; +METH-1164 PO
== END ==
LOC: M SOG 07:19
PROVIDERS: ATTEND Orthopaedic Surgery
DX: S76.311A Strain of muscle, fascia and tendon of the posterior muscle group at thigh level, right thigh, initial encounter (principal); M79.651 Pain in right thigh

== ENCOUNTER 2024-09-24 11:54 | Observation (INO) | payer OTHER ==
[~2024-09-24] VITALS: Ht 180.3 cm; Wt 118.3 kg
[2024-09-24 14:04] LABS: BASO % 0.2 % (0.0-1.0); EOS # 0.1 10^3/uL (0.0-0.5); EOS % 0.6 % (0.0-3.0); LYMPH # 1.2 10^3/uL (1.5-5.0); LYMPH % 10.8 % (24.0-44.0); MEAN CORPUSCULAR HGB CONC 33.2 g/dl (32.0-36.5); MEAN CORPUSCULAR VOLUME 90.4 fl (80.0-96.0); MONO # 0.9 10^3/uL (0.0-0.8); MONO % 8.3 % (2.0-8.0); NEUTROPHILS # 9.1 10^3/uL (1.5-8.5); NEUTROPHILS % 79.7 % (36.0-66.0); PLATELET COUNT, AUTOMATED 235 10^3/uL (150-450); RED BLOOD COUNT 5.96 10^6/uL (4.30-6.10); WHITE BLOOD COUNT 11.4 10^3/uL (4.0-10.0)
[2024-09-24 14:06] LABS: HEMATOCRIT 53.9 % (42.0-52.0); HEMOGLOBIN 17.9 g/dl (13.5-17.5)
[2024-09-24 14:22] LABS: LIPASE 34 U/L (12-53)
[2024-09-24 14:23] LABS: ALBUMIN 3.9 G/DL (3.2-5.2); ALKALINE PHOSPHATASE 73 U/L (40-129); ALT/SGPT 18 U/L (7.0-40); AST/SGOT 18 U/L (<34); BILIRUBIN,DIRECT 0.4 MG/DL (<0.4); BILIRUBIN,TOTAL 1.4 MG/DL (0.3-1.2); BLOOD UREA NITROGEN 15 MG/DL (9-23); CALCIUM LEVEL 9.7 MG/DL (8.5-10.1); CARBON DIOXIDE LEVEL 32 MMOL/L (20-31); CHLORIDE LEVEL 104 MMOL/L (98-107); CREATININE FOR GFR 0.97 MG/DL (0.70-1.30); GLOMERULAR FILTRATION RATE > 60.0 (>56); GLUCOSE, FASTING 119 MG/DL (60-100); POTASSIUM SERUM 4.9 MMOL/L (3.5-5.1); SODIUM LEVEL 141 MMOL/L (136-145); TOTAL PROTEIN 7.3 G/DL (5.7-8.2)
[2024-09-24] MEDS ORDERED: ISOVUE-370 76% 100ML VIAL As Ordered ONE (15:08)
[2024-09-24] MEDS: NS 1,000 ML IV ONE (15:11)
[2024-09-24] MEDS: PIPERACILLIN/TAZOBACTAM SOD 3.375 GM in DEXTROSE 5% (D5W) ADV/MINI-BAG 50 ML IV ONE (15:57)
[2024-09-24] MEDS: MORPHINE 4 MG/ML 1ML VIAL IV ONE (15:57)
[2024-09-24] MEDS: ONDANSETRON 4MG 2ML VIAL IV ONE (15:57)
[2024-09-24] MEDS ORDERED: ONDANSETRON 4MG 2ML VIAL IV PRN (17:00)
[2024-09-24] MEDS ORDERED: KETOROLAC 30 MG/ML 1ML VIAL IV PRN (17:00)
[2024-09-24] MEDS ORDERED: HOME MED LIST COMPLETE! XX SCH (17:00)
[2024-09-24] MEDS: MAGNESIUM CITRATE 300ML BTL PO ONE (17:40)
[2024-09-24] MEDS: SENOKOT S TAB PO SCH (21:00)
[2024-09-24 23:22] VITALS: BP 141/82; TEMP 97.3; O2SAT 95
[2024-09-25 04:57] VITALS: BP 131/78; TEMP 97.3; O2SAT 93
[2024-09-25 06:15] LABS: HEMATOCRIT 47.9 % (42.0-52.0); MEAN CORPUSCULAR HEMOGLOBIN 29.7 pg (27.0-33.0); MEAN CORPUSCULAR HGB CONC 32.8 g/dl (32.0-36.5); MEAN CORPUSCULAR VOLUME 90.7 fl (80.0-96.0); PLATELET COUNT, AUTOMATED 179 10^3/uL (150-450); RED BLOOD COUNT 5.28 10^6/uL (4.30-6.10); WHITE BLOOD COUNT 7.6 10^3/uL (4.0-10.0)
[2024-09-25 06:26] LABS: HEMOGLOBIN 15.7 g/dl (13.5-17.5)
[2024-09-25 06:38] LABS: ALBUMIN 3.1 G/DL (3.2-5.2); ALKALINE PHOSPHATASE 55 U/L (40-129); ALT/SGPT 14 U/L (7.0-40); AST/SGOT 17 U/L (<34); BILIRUBIN,TOTAL 1.1 MG/DL (0.3-1.2); BLOOD UREA NITROGEN 15 MG/DL (9-23); CALCIUM LEVEL 8.8 MG/DL (8.5-10.1); CARBON DIOXIDE LEVEL 29 MMOL/L (20-31); CHLORIDE LEVEL 106 MMOL/L (98-107); GLOMERULAR FILTRATION RATE > 60.0 (>56); GLUCOSE, FASTING 96 MG/DL (60-100); POTASSIUM SERUM 4.2 MMOL/L (3.5-5.1); SODIUM LEVEL 140 MMOL/L (136-145)
[2024-09-25] MEDS: ENOXAPARIN 30MG/0.3ML SYRINGE (J1650 PER 10MG) SC SCH (09:13)
[2024-09-25 09:35] VITALS: BP 132/86
== END 2024-09-25 11:00 | disposition home or self-care (01) ==
LOC: M ED 11:54 → M ED INP 11:55 → M MS5PR 23:30
PROVIDERS: ADMIT Surgery; ATTEND Surgery
DX: K56.690 Other partial intestinal obstruction (principal); K43.2 Incisional hernia without obstruction or gangrene; R11.10 Vomiting, unspecified; Z90.49 Acquired absence of other specified parts of digestive tract; Z85.038 Personal history of other malignant neoplasm of large intestine; Z90.89 Acquired absence of other organs; Z98.890 Other specified postprocedural states
CPT/HCPCS: 36415; 74177; 80048; 80053; 80076; 83605; 83690; 85025; 85027; 96361; 96372; 96374; 96375; 99285; J1650; J2405; J2543; Q9967